=== PATIENT | female | born 1975 | race Hispanic/Latino ===

== ENCOUNTER 2018-10-15 19:50 | Emergency (ER) | payer SELFPAY ==
[2018-10-15] MEDS ORDERED: AMOX/K CLAV 875 MG TAB ONE (20:50)
--- NOTE | 2018-10-15 21:00 | ER ---
Nurse's Notes [facility] Name: Loyda Moyer Age: 43 yrs Sex: Female : 1975 Arrival Date: 10/15/2018 Time: 20:20 Bed 10 Private MD: Diagnosis: Acute tonsillitis Presentation: 10/15 20:21 Presenting complaint: Patient states: Headache, fever and sore throat that started ea yesterday. Pt reports she took amoxicillin and tylenol last taken a few hours ago. Transition of care: patient was not received from another setting of care. Onset of symptoms was October 15, 2018. Risk Assessment: Do you want to hurt yourself or someone else? Patient reports no desire to harm self or others. Initial Sepsis Screen: Does the patient meet any 2 criteria? HR > 90 bpm. Does the patient have a suspected source of infection? No. Patient's initial sepsis screen is negative. Care prior to arrival: Medication(s) given: Tylenol. 20:21 Method Of Arrival: Ambulatory ea 20:21 Acuity: JOCELYN 4 ea Triage Assessment: 20:26 General: Appears uncomfortable, Behavior is appropriate for age. Pain: Complains of ea pain in sore throat. EENT: Reports sore throat. 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 - Social history:: Smoking status: Patient/guardian denies using tobacco. - Ebola Screening: : No symptoms or risks identified at this time. Screenin:23 Abuse screen: Denies threats or abuse. Nutritional screening: No deficits noted. ea Tuberculosis screening: No symptoms or risk factors identified. Fall Risk None identified. Assessment: 20:30 General: Appears in no apparent distress. comfortable, Behavior is calm, cooperative, cc3 appropriate for age. Pain: Complains of pain in throat. Neuro: Level of Consciousness is awake, alert, obeys commands, Oriented to person, place, time, situation, Appropriate for age. Cardiovascular: Denies chest pain, Patient's skin is warm and dry. Respiratory: Airway is patent Respiratory effort is even, unlabored, Respiratory pattern is regular, symmetrical, Breath sounds are clear bilaterally. GI: Abdomen is round non-distended. : No signs and/or symptoms were reported regarding the genitourinary system. EENT: Throat with gag reflex present. Derm: No signs and/or symptoms reported regarding the dermatologic system. Musculoskeletal: Circulation, motion, and sensation intact. Range of motion: intact in all extremities. 21:10 Reassessment: Patient appears in no apparent distress at this time. Patient and/or cc3 family updated on plan of care and expected duration. Pain level reassessed. Patient is alert, oriented x 3, equal unlabored respirations, skin warm/dry/pink. MANAGER GAME Juan discharged the patient home with prescription given. No IV cannula in situ. Patient left ER vitally stable and ambulatory with her family. Patient denies pain at this time. Patient states feeling better. Patient states symptoms have improved. Vital Signs: 20:23 BP 154 / 94; Pulse 116; Resp 18; Temp 99.1; Pulse Ox 100% ; Weight 72.57 kg; Height 5 ea ft. 2 in. (157.48 cm); Pain 10/10; 21:00 BP 136 / 75; Pulse 97; Resp 18 S; Temp 98.8(O); Pulse Ox 98% on R/A; cc3 20:23 Body Mass Index 29.26 (72.57 kg, 157.48 cm) ea ED Course: 20:20 Patient arrived in ED. ea 20:23 Triage completed. ea 20:23 Lyric Martinez FNP-C is [facility]. kb 20:23 Yonas Cary MD is Attending Physician. kb 20:30 Kay Whiteside is Primary Nurse. cc3 20:30 Patient has correct armband on for positive identification. Bed in low position. Call cc3 light in reach. Pulse ox on. NIBP on. 20:30 Arm band placed on right wrist. Patient notified of wait time. cc3 21:10 No provider procedures requiring assistance completed. Patient did not have IV access cc3 during this emergency room visit. Administered Medications: 20:32 Drug: Augmentin 875 mg Route: PO; cc3 21:00 Follow up: Response: No adverse reaction cc3 Outcome: 21:00 Discharge ordered by . kb 21:10 Discharged to home ambulatory, with family. cc3 21:10 Condition: stable 21:10 Discharge instructions given to patient, family, Instructed on discharge instructions, follow up and referral plans. medication usage, Demonstrated understanding of instructions, follow-up care, medications, Prescriptions given X 1. 21:13 Patient left the ED. cc3 Signatures: Lyric Martinez, KARENAC Madisyn Botello RN RN Kay Landry cc3
--- NOTE | 2018-10-15 21:01 | EDPHYS ---
Physician Documentation [facility] Name: Loyda Moyer Age: 43 yrs Sex: Female : 1975 Arrival Date: 10/15/2018 Time: 20:20 Bed 10 Private MD: ED Physician Yonas Cary HPI: 10/15 20:59 This 43 yrs old Female presents to ER via Ambulatory with complaints of Fever, kb Sore Throat. 20:59 The patient presents with sore throat. The patient describes throat pain as constant. kb Onset: The symptoms/episode began/occurred yesterday. Severity of symptoms: At their worst the symptoms were moderate, in the emergency department the symptoms are unchanged. Modifying factors: The symptoms are alleviated by nothing, the symptoms are aggravated by swallowing, Patient's oral intake status: good The patient has had contact with sick. Associated signs and symptoms: Pertinent positives: fever, Sore throat. The patient has not experienced similar symptoms in the past. The patient has not recently seen a physician. 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 - Social history:: Smoking status: Patient/guardian denies using tobacco. - Ebola Screening: : No symptoms or risks identified at this time. ROS: 20:57 Cardiovascular: Negative for chest pain, palpitations, and edema, Respiratory: Negative kb for shortness of breath, cough, wheezing, and pleuritic chest pain, Abdomen/GI: Negative for abdominal pain, nausea, vomiting, diarrhea, and constipation, Back: Negative for injury and pain, MS/Extremity: Negative for injury and deformity, Skin: Negative for injury, rash, and discoloration, Neuro: Negative for headache, weakness, numbness, tingling, and seizure. 20:57 Constitutional: Positive for fatigue, fever, malaise, Negative for body aches, chills, poor PO intake, weight loss. 20:57 ENT: Positive for sore throat. Exam: 20:57 Constitutional: This is a well developed, well nourished patient who is awake, alert, kb and in no acute distress. Head/Face: Normocephalic, atraumatic. Chest/axilla: Normal chest wall appearance and motion. Nontender with no deformity. No lesions are appreciated. Cardiovascular: Regular rate and rhythm with a normal S1 and S2. No gallops, murmurs, or rubs. Normal PMI, no JVD. No pulse deficits. Respiratory: Lungs have equal breath sounds bilaterally, clear to auscultation and percussion. No rales, rhonchi or wheezes noted. No increased work of breathing, no retractions or nasal flaring. Abdomen/GI: Soft, non-tender, with normal bowel sounds. No distension or tympany. No guarding or rebound. No evidence of tenderness throughout. Skin: Warm, dry with normal turgor. Normal color with no rashes, no lesions, and no evidence of cellulitis. MS/ Extremity: Pulses equal, no cyanosis. Neurovascular intact. Full, normal range of motion. Neuro: Awake and alert, GCS 15, oriented to person, place, time, and situation. Cranial nerves II-XII grossly intact. Motor strength 5/5 in all extremities. Sensory grossly intact. Cerebellar exam normal. Normal gait. 20:57 ENT: Posterior pharynx: Airway: normal, no evidence of obstruction, Tonsils: bilaterally enlarged, with erythema, with exudate, Uvula: normal, midline, swelling, that is moderate, erythema, that is marked, exudate, that is moderate. Vital Signs: 20:23 BP 154 / 94; Pulse 116; Resp 18; Temp 99.1; Pulse Ox 100% ; Weight 72.57 kg; Height 5 ea ft. 2 in. (157.48 cm); Pain 10/10; 21:00 BP 136 / 75; Pulse 97; Resp 18 S; Temp 98.8(O); Pulse Ox 98% on R/A; cc3 20:23 Body Mass Index 29.26 (72.57 kg, 157.48 cm) ea MDM: 20:27 Patient medically screened. kb 20:59 Data reviewed: vital signs, nurses notes. Data interpreted: Pulse oximetry: on room air kb is 100 %. Interpretation: normal. Counseling: I had a detailed discussion with the patient and/or guardian regarding: the historical points, exam findings, and any diagnostic results supporting the discharge/admit diagnosis, lab results, the need for outpatient follow up, a family practitioner, to return to the emergency department if symptoms worsen or persist or if there are any questions or concerns that arise at home. 20:59 ED course: Prescribing antibiotics due to physical exam findings. charley 10/15 20:25 Order name: Strep ea 10/15 20:53 Order name: Group A Streptococcus Rapid Sc; Complete Time: 20:54 EDMS Administered Medications: 20:32 Drug: Augmentin 875 mg Route: PO; cc3 21:00 Follow up: Response: No adverse reaction cc3 Disposition: 21:13 Co-signature as Attending Physician, Yonas Cary MD. [email or web address] Disposition: 10/15/18 21:00 Discharged to Home. Impression: Acute tonsillitis. - Condition is Stable. - Discharge Instructions: Tonsillitis, Moan-ah-Yhni, Strep Throat, Wjjn-re-Dzuc. - Prescriptions for Augmentin 875- 125 mg Oral Tablet - take 1 tablet by ORAL route every 12 hours for 10 days; 20 tablet. - Medication Reconciliation Form, Thank You Letter, Antibiotic Education, Prescription Opioid Use form. - Follow up: Emergency Department; When: As needed; Reason: Worsening of condition. Follow up: Private Physician; When: 2 - 3 days; Reason: Recheck today's complaints, Continuance of care, Re-evaluation by your physician. Signatures: Dispatcher [employer] EDLyric Baez, CHILD CARE CENTER ASSISTANT DIRECTOR-Jodee NIETOP-Yonas Rodriguez MD MD pkMadisyn Rutherford, Kay Cid RN, ea cc3 Corrections: (The following items were deleted from the chart) 21:13 21:00 10/15/2018 21:00 Discharged to Home. Impression: Acute tonsillitis. Condition is cc3 Stable. Forms are Medication Reconciliation Form, Thank You Letter, Antibiotic Education, Prescription Opioid Use. Follow up: Emergency Department; When: As needed; Reason: Worsening of condition. Follow up: Private Physician; When: 2 - 3 days; Reason: Recheck today's complaints, Continuance of care, Re-evaluation by your physician. kb
== END 2018-10-15 21:13 | disposition home or self-care (01) ==
LOC: ER 19:50
DX: J03.90 Acute tonsillitis, unspecified (principal)
CPT/HCPCS: 87070; 87081; 99283

== ENCOUNTER 2019-06-29 23:03 | Emergency (ER) | payer OTHER ==
[2019-06-29] MEDS ORDERED: SUCRALFATE 1 GM TABLET ONE (23:27)
[2019-06-29] MEDS ORDERED: SIMETHICONE 80 MG TAB ONE (23:28)
[2019-06-29] MEDS ORDERED: NA CHLORIDE 0.9% 1,000 ML ONE (23:33)
[2019-06-29] MEDS ORDERED: DICYCLOMINE HCL 10 MG CAP ONE (23:33)
[2019-06-30 00:11] LABS: Absolute Lymphocytes (CBC) 3.8 K/uL (0.7-4.9); Basophils % 0.4 % (0-1.3); Hematocrit 31.5 % (36.0-45.0); Lymphocytes % 36.4 % (15.3-44.8); MPV 10.5 fL (7.6-11.3); RBC Red Blood Cell Count 3.84 M/uL (3.86-4.86)
[2019-06-30 00:14] LABS: ALT/SGPT 29 U/L (12-78); AST/SGOT 14 U/L (15-37); Albumin 3.2 g/dL (3.4-5.0); Alkaline Phosphatase 49 U/L (45-117); BUN Blood Urea Nitrogen 14 mg/dL (7-18); Bicarbonate 26 mmol/L (21-32); Bilirubin Direct < 0.1 mg/dL (0-0.2); Bilirubin Total 0.2 mg/dL (0.2-1.0); Glucose Level 132 mg/dL (74-106); Lipase 288 U/L (73-393); Potassium 3.4 mmol/L (3.5-5.1); Protein, Total 6.6 g/dL (6.4-8.2); Sodium Level 140 mmol/L (136-145)
[2019-06-30] MEDS ORDERED: FENTANYL CITR 100 MCG/2 ML ONE (00:18)
--- NOTE | 2019-06-30 00:49 | ER ---
Nurse's Notes [facility] Name: Loyda Moyer Age: 44 yrs Sex: Female : 1975 Arrival Date: 06/29/2019 Time: 23:05 Bed 17 Private MD: Ronald Shultz R Diagnosis: Colic;Iron deficiency anemia, unspecified;Essential (primary) hypertension Presentation: 06/29 23:11 Presenting complaint: Burning epigastric pain 9/10 since this morning. Denies hb N/V/D/fever. Transition of care: patient was not received from another setting of care. Onset of symptoms was June 29, 2019. Risk Assessment: Do you want to hurt yourself or someone else? Patient reports no desire to harm self or others. Initial Sepsis Screen: Does the patient meet any 2 criteria? No. Patient's initial sepsis screen is negative. Does the patient have a suspected source of infection? No. Patient's initial sepsis screen is negative. Care prior to arrival: None. 23:11 Method Of Arrival: Ambulatory hb 23:11 Acuity: JOCELYN 3 hb Triage Assessment: 23:14 General: Appears in no apparent distress. uncomfortable, Behavior is calm, cooperative. hb Pain: Pain currently is 9 out of 10 on a pain scale. EENT: No signs and/or symptoms were reported regarding the EENT system. Neuro: Level of Consciousness is awake, alert, obeys commands, Oriented to person, place, time, situation. Cardiovascular: Capillary refill < 3 seconds Patient's skin is warm and dry. Respiratory: Airway is patent Respiratory effort is even, unlabored, Respiratory pattern is regular, symmetrical. GI: Abdomen is non-distended, Bowel sounds present X 4 quads. Abd is soft and non tender X 4 quads. Reports epigastric pain. : No signs and/or symptoms were reported regarding the genitourinary system. Derm: Skin is intact, is healthy with good turgor. Musculoskeletal: No signs and/or symptoms reported regarding the musculoskeletal system. 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 - Coronavirus screen:: The patient has NOT traveled to [place] in the past 14 days. The patient has NOT had contact with known/suspected case of Coronavirus? Proceed with normal triage procedures. - Social history:: Smoking status: Patient denies any tobacco usage or history of. - Ebola Screening: : No symptoms or risks identified at this time. Screenin:13 Abuse screen: Denies threats or abuse. Denies injuries from another. Nutritional hb screening: No deficits noted. Tuberculosis screening: No symptoms or risk factors identified. Fall Risk None identified. Assessment: 23:16 General: SEE TRIAGE ASSESSMENT. hb 06/30 00:36 Reassessment: Patient appears in no apparent distress at this time. Patient and/or hb family updated on plan of care and expected duration. Pain level reassessed. Patient is alert, oriented x 3, equal unlabored respirations, skin warm/dry/pink. Vital Signs: 06/29 23:11 BP 178 / 85; Pulse 86; Resp 16; Temp 98.5; Pulse Ox 97% ; Weight 76.2 kg; Height 5 ft. hb 2 in. (157.48 cm); Pain 9/10; 06/30 00:31 BP 155 / 90; Pulse 82; Resp 15; Pulse Ox 100% ; Pain 6/10; hb 06/29 23:11 Body Mass Index 30.73 (76.20 kg, 157.48 cm) hb ED Course: 06/29 23:05 Patient arrived in ED. es 23:06 Ronald Shultz MD is Private Physician. es 23:11 Perri Patel, MARLENY is Primary Nurse. hb 23:11 Arm band placed on. hb 23:12 Triage completed. hb 23:12 Sloane Lechuga FNP-C is PHCP. snw 23:12 Jacek Kate MD is Attending Physician. snw 23:13 Patient has correct armband on for positive identification. Bed in low position. Call hb light in reach. Side rails up X 1. 23:33 Inserted saline lock: 20 gauge in right antecubital area, using aseptic technique. hb Blood collected. 23:37 Urine Culture Sent. hb 06/30 00:18 Urine --Ancillary (enter results) Sent. hb 00:18 Urine Dipstick--Ancillary (enter results) Sent. hb 00:21 EKG done, by ED staff, reviewed by Jacek Kate MD. ds4 00:28 Urine Microscopic Only Sent. hb 00:47 Ronald Shultz MD is Referral Physician. snw 00:56 No provider procedures requiring assistance completed. IV discontinued, intact, hb bleeding controlled, No redness/swelling at site. Pressure dressing applied. Administered Medications: 06/29 23:27 Drug: Simethicone 240 mg Route: PO; rr5 06/30 00:17 Follow up: Response: No adverse reaction hb 06/29 23:27 Drug: CarafATE 1 grams Route: PO; rr5 06/30 00:18 Follow up: Response: No adverse reaction hb 06/29 23:37 Drug: Bentyl 20 mg Route: PO; hb 06/30 00:18 Follow up: Response: No adverse reaction hb 06/29 23:37 Drug: NS 0.9% 1000 ml Route: IV; Rate: 1 bolus; Site: right antecubital; hb 02 00:30 Follow up: Response: No adverse reaction; IV Status: Completed infusion; IV Intake: hb 1000ml 00:17 Drug: fentaNYL (PF) 25 mcg Route: IVP; Site: right antecubital; hb 00:47 Follow up: Response: No adverse reaction; Pain is decreased; RASS: Drowsy (-1) hb Intake: 00:30 IV: 1000ml; Total: 1000ml. hb Outcome: 00:47 Discharge ordered by . snw 00:56 Discharged to home ambulatory. hb 00:56 Condition: stable 00:56 Discharge instructions given to patient, Instructed on discharge instructions, follow up and referral plans. medication usage, Demonstrated understanding of instructions, follow-up care, medications, Prescriptions given X 3. 01:03 Patient left the ED. hb Signatures: Sloane Lechuga, AIRCRAFT STRUCTURAL FITTER-C AIRCRAFT STRUCTURAL FITTER-CsnDee Gabriel Donovan ds4 Perri Patel, RN RN Taran Banks, RN RN [id number]
--- NOTE | 2019-06-30 00:50 | EDPHYS ---
Physician Documentation [facility] Name: Loyda Moyer Age: 44 yrs Sex: Female : 1975 Arrival Date: 06/29/2019 Time: 23:05 Bed 17 Private MD: Ronald Shultz R ED Physician Jacek Kate HPI: 06/30 00:42 This 44 yrs old Female presents to ER via Ambulatory with complaints of snw Abdominal Pain. 00:42 The patient presents with abdominal pain in the epigastric area. Onset: The snw symptoms/episode began/occurred suddenly, today. The symptoms radiate to The symptoms are described as constant. Modifying factors: The symptoms are alleviated by nothing. Severity of pain: At its worst the pain was moderate severe. The patient has experienced a previous episode, when cholecystitis dx, + cholecystectomy. The patient has not recently seen a physician. 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 - Coronavirus screen:: The patient has NOT traveled to [place] in the past 14 days. The patient has NOT had contact with known/suspected case of Coronavirus? Proceed with normal triage procedures. - Social history:: Smoking status: Patient denies any tobacco usage or history of. - Ebola Screening: : No symptoms or risks identified at this time. ROS: 06/30 00:39 Constitutional: Negative for fever, chills, and weight loss, Eyes: Negative for injury, snw pain, redness, and discharge, ENT: Negative for injury, pain, and discharge, Neck: Negative for injury, pain, and swelling, Cardiovascular: Negative for chest pain, palpitations, and edema, Respiratory: Negative for shortness of breath, cough, wheezing, and pleuritic chest pain, Back: Negative for injury and pain, : Negative for injury, bleeding, discharge, and swelling, MS/Extremity: Negative for injury and deformity, Skin: Negative for injury, rash, and discoloration, Neuro: Negative for headache, weakness, numbness, tingling, and seizure, Psych: Negative for depression, anxiety, suicide ideation, homicidal ideation, and hallucinations. Abdomen/GI: Positive for abdominal pain, of the epigastric area. Exam: 00:20 ECG was reviewed by the Attending Physician. snw 00:39 Constitutional: This is a well developed, well nourished patient who is awake, alert, snw and in no acute distress. Head/Face: Normocephalic, atraumatic. Eyes: Pupils equal round and reactive to light, extra-ocular motions intact. Lids and lashes normal. Conjunctiva and sclera are non-icteric and not injected. Cornea within normal limits. Periorbital areas with no swelling, redness, or edema. ENT: Nares patent. No nasal discharge, no septal abnormalities noted. Tympanic membranes are normal and external auditory canals are clear. Oropharynx with no redness, swelling, or masses, exudates, or evidence of obstruction, uvula midline. Mucous membranes moist. Neck: Trachea midline, no thyromegaly or masses palpated, and no cervical lymphadenopathy. Supple, full range of motion without nuchal rigidity, or vertebral point tenderness. No Meningismus. Chest/axilla: Normal chest wall appearance and motion. Nontender with no deformity. No lesions are appreciated. Cardiovascular: Regular rate and rhythm with a normal S1 and S2. No gallops, murmurs, or rubs. Normal PMI, no JVD. No pulse deficits. Respiratory: Lungs have equal breath sounds bilaterally, clear to auscultation and percussion. No rales, rhonchi or wheezes noted. No increased work of breathing, no retractions or nasal flaring. Back: No spinal tenderness. No costovertebral tenderness. Full range of motion. Skin: Warm, dry with normal turgor. Normal color with no rashes, no lesions, and no evidence of cellulitis. MS/ Extremity: Pulses equal, no cyanosis. Neurovascular intact. Full, normal range of motion. Neuro: Awake and alert, GCS 15, oriented to person, place, time, and situation. Cranial nerves II-XII grossly intact. Motor strength 5/5 in all extremities. Sensory grossly intact. Cerebellar exam normal. Normal gait. Psych: Awake, alert, with orientation to person, place and time. Behavior, mood, and affect are within normal limits. 00:39 Abdomen/GI: Inspection: abdomen appears normal, Bowel sounds: normal, in all quadrants, Palpation: mild abdominal tenderness, in the epigastric area. Vital Signs: 06/29 23:11 BP 178 / 85; Pulse 86; Resp 16; Temp 98.5; Pulse Ox 97% ; Weight 76.2 kg; Height 5 ft. hb 2 in. (157.48 cm); Pain 9/10; 06/30 00:31 BP 155 / 90; Pulse 82; Resp 15; Pulse Ox 100% ; Pain 6/10; hb 06/29 23:11 Body Mass Index 30.73 (76.20 kg, 157.48 cm) hb MDM: 06/29 23:15 Patient medically screened. snw 06/30 00:48 Data reviewed: vital signs, nurses notes. Data interpreted: Pulse oximetry: on room air snw is 100 %. Interpretation: normal. Counseling: I had a detailed discussion with the patient and/or guardian regarding: the historical points, exam findings, and any diagnostic results supporting the discharge/admit diagnosis, the presence of at least one elevated blood pressure reading (>120/80) during this emergency department visit, lab results, the need for outpatient follow up, to return to the emergency department if symptoms worsen or persist or if there are any questions or concerns that arise at home. Response to treatment: the patient's symptoms have markedly improved after treatment. Special discussion: Based on the patient's Hx, exam, and Dx evaluation, there is no indication for emergent surgery or inpatient Tx. It is understood by the patient/guardian that if the Sx's persist or worsen they need to return immediately for re-evaluation. I have referred the patient to see his PCP for further evaluation of high blood pressure. Based on the history and exam findings, there is no indication for further emergent testing or inpatient evaluation. I discussed with the patient/guardian the need to see the primary care provider for further evaluation of the symptoms. 06/29 23:13 Order name: Urine Culture snw 06/29 23:13 Order name: Urine Microscopic Only snw 06/29 23:24 Order name: CBC with Diff snw 06/29 23:24 Order name: Chem 7 snw 06/29 23:24 Order name: LFT's snw 06/29 23:24 Order name: Lipase snw 06/30 00:11 Order name: Urine Dipstick--Ancillary (enter results) cm6 06/30 00:11 Order name: Urine --Ancillary (enter results) cm6 06/30 00:12 Order name: CBC with Automated Diff; Complete Time: 00:13 EDMS 06/30 00:15 Order name: Basic Metabolic Panel; Complete Time: 00:15 EDMS 06/30 00:15 Order name: Liver (Hepatic) Function; Complete Time: 00:15 EDMS 06/30 00:15 Order name: Lipase; Complete Time: 00:15 EDMS 06/29 23:13 Order name: Urine Test (obtain specimen); Complete Time: 00:18 snw 06/29 23:13 Order name: Urine Dipstick-Ancillary (obtain specimen); Complete Time: 00:28 snw 06/29 23:21 Order name: EKG; Complete Time: 23:21 snw 06/29 23:21 Order name: EKG - Nurse/Tech; Complete Time: 00:18 snw EC:20 Rate is 77 beats/min. Rhythm is regular. WI interval is normal. QRS interval is normal. snw QT interval is normal. T waves are Inverted in leads III, aVR. Clinical impression: NSR w/ Non-specific ST/T Changes. Administered Medications: 06/29 23:27 Drug: Simethicone 240 mg Route: PO; rr5 06/30 00:17 Follow up: Response: No adverse reaction hb 06/29 23:27 Drug: CarafATE 1 grams Route: PO; rr5 06/30 00:18 Follow up: Response: No adverse reaction hb 06/29 23:37 Drug: Bentyl 20 mg Route: PO; hb 06/30 00:18 Follow up: Response: No adverse reaction hb 06/29 23:37 Drug: NS 0.9% 1000 ml Route: IV; Rate: 1 bolus; Site: right antecubital; hb 06/30 00:30 Follow up: Response: No adverse reaction; IV Status: Completed infusion; IV Intake: hb 1000ml 00:17 Drug: fentaNYL (PF) 25 mcg Route: IVP; Site: right antecubital; hb 00:47 Follow up: Response: No adverse reaction; Pain is decreased; RASS: Drowsy (-1) hb Disposition: 01:08 Co-signature as Attending Physician, Jacek Kate MD I agree with the assessment and kdr plan of care. Disposition: 06/30/19 00:47 Discharged to Home. Impression: Colic, Iron deficiency anemia, unspecified, Essential (primary) hypertension. - Condition is Stable. - Discharge Instructions: Iron Deficiency Anemia, Adult, Biliary Colic, Adult, Fat and Cholesterol Restricted Diet, Hypertension, How to Take Your Blood Pressure, [id number], DASH Eating Plan, Form - Blood Pressure Record Sheet. - Prescriptions for Bentyl 20 mg Oral Tablet - take 1 tablet by ORAL route every 6 hours As needed; 20 tablet. promethazine 25 mg Oral Tablet - take 1 tablet by ORAL route every 6 hours As needed; 20 tablet. Vitamin 27- 0.8 mg Oral Tablet - take 1 tablet by ORAL route once daily; 60 tablet. - Work release form, Medication Reconciliation Form, Thank You Letter, Antibiotic Education, Prescription Opioid Use form. - Follow up: Emergency Department; When: As needed; Reason: Worsening of condition. Follow up: Ronald Shultz MD; When: 2 - 3 days; Reason: Recheck today's complaints, Continuance of care, Re-evaluation by your physician. Signatures: Dispatcher [employer] EDMS Jacek Kate MD MD kdr Therrien, Shelly, RETAIL EVENT COORDINATOR-C RETAIL EVENT COORDINATOR-Csnw Perri Patel, MARLENY RN Taran Banks RN RN rr5 Corrections: (The following items were deleted from the chart) 00:47 00:47 06/30/2019 00:47 Discharged to Home. Impression: Colic. Condition is Stable. snw Forms are Medication Reconciliation Form, Thank You Letter, Antibiotic Education, Prescription Opioid Use. Follow up: Emergency Department; When: As needed; Reason: Worsening of condition. Follow up: Ronald Shultz; When: 2 - 3 days; Reason: Recheck today's complaints, Continuance of care, Re-evaluation by your physician. snw 00:49 00:47 06/30/2019 00:47 Discharged to Home. Impression: Colic; Iron deficiency anemia, snw unspecified. Condition is Stable. Forms are Medication Reconciliation Form, Thank You Letter, Antibiotic Education, Prescription Opioid Use. Follow up: Emergency Department; When: As needed; Reason: Worsening of condition. Follow up: Ronald Shultz; When: 2 - 3 days; Reason: Recheck today's complaints, Continuance of care, Re-evaluation by your physician. laci 01:03 00:49 06/30/2019 00:47 Discharged to Home. Impression: Colic; Iron deficiency anemia, hb unspecified; Essential (primary) hypertension. Condition is Stable. Forms are Medication Reconciliation Form, Thank You Letter, Antibiotic Education, Prescription Opioid Use. Follow up: Emergency Department; When: As needed; Reason: Worsening of condition. Follow up: Ronald Shultz; When: 2 - 3 days; Reason: Recheck today's complaints, Continuance of care, Re-evaluation by your physician. laci
[2019-06-30 01:07] LABS: Urine Blood TRACE (NEG); Urine Glucose NEGATIVE (NEG); Urine Protein NEGATIVE (NEG); Urine Specific Gravity 1.015 (1.005-1.030)
[2019-06-30 01:48] LABS: Urine Bacteria <20 /HPF (<20); Urine Culture Reflex Order NOT NEEDED; Urine RBC <5 /HPF (NONE SEEN)
[2019-06-30 03:38] VITALS: BP 155/90; O2SAT 100
[2019-06-30 03:40] VITALS: TEMP 98.5
--- NOTE | 2019-06-30 06:20 | EKG ---
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
== END 2019-06-30 01:03 | disposition home or self-care (01) ==
LOC: ER 23:03
DX: R10.84 Generalized abdominal pain (principal); D50.9 Iron deficiency anemia, unspecified; I10 Essential (primary) hypertension
CPT/HCPCS: 96361; 93005; 87088; 85025; 87086; 80048; 36415; 81025; 80076; 87077; 87186; 83690; 96374; 99284; J3010; J7030; 81003; 81015

== ENCOUNTER 2020-01-27 23:48 | Inpatient (IN) | payer OTHER, SELFPAY ==
[2020-01-28] MEDS ORDERED: MORPHINE 4 MG/ML SYR ONE (00:18)
[2020-01-28] MEDS ORDERED: NA CHLORIDE 0.9% 1,000 ML ONE ×2 (00:18→02:05)
[2020-01-28] MEDS ORDERED: ONDANSETRON 4 MG/2 ML VIAL ONE (00:18)
[2020-01-28] MEDS ORDERED: FAMOTIDINE 20 MG/2 ML VIAL IV ONE (00:27)
[2020-01-28 00:50] LABS: Absolute Lymphocytes (CBC) 0.6 K/uL (0.7-4.9); Basophils % 0.1 % (0-1.3); Hematocrit 32.8 % (36.0-45.0); MPV 10.5 fL (7.6-11.3); RBC Red Blood Cell Count 4.19 M/uL (3.86-4.86)
[2020-01-28 00:59] LABS: Bilirubin Direct 0.1 mg/dL (0-0.2); Bilirubin Total 0.3 mg/dL (0.2-1.0); Protein, Total 7.3 g/dL (6.4-8.2)
[2020-01-28 01:23] LABS: Magnesium 2.1 mg/dL (1.8-2.4)
[2020-01-28] MEDS ORDERED: POTASSIUM 25 MEQ EFFERV TAB ONE (01:32)
[2020-01-28] MEDS ORDERED: PROMETHAZINE INJ 25 MG/ML AMP ONE (01:38)
[2020-01-28 01:51] LABS: Blood Morphology Comment NOT SEEN (NOT SEEN); Platelet Estimate ADEQ
[2020-01-28 01:52] LABS: Urine Blood 2+ (NEG); Urine Glucose NEGATIVE (NEG); Urine Protein 3+ (NEG); Urine pH 5.5 (5.0-7.0)
[2020-01-28] MEDS ORDERED: METRONIDAZOLE 500mg IVPB 500 MG/100 ML BAG IV ONE (02:33)
[2020-01-28] MEDS ORDERED: CIPROFLOXACIN 400mg IV 400 MG/200 ML BAG IV ONE (02:33)
--- NOTE | 2020-01-28 03:37 | ER ---
Nurse's Notes [facility] Name: Loyda Moyer Age: 44 yrs Sex: Female : 1975 Arrival Date: 01/27/2020 Time: 23:52 Bed 20 Private MD: Ronald Shultz R Diagnosis: Colitis;Bandemia;Hypokalemia;Dehydration Presentation: 01/27 00:00 Chief complaint: Patient states: STARTED FEELING BAD MONDAY. AFTER EATING BURGER, rv STARTED HAVING NAUSEA/VOMITING/DIARRHEA. NOT ABLE TO HOLD ANYTHING DOWN AND IS VERY WEAK AND DEHYDRATED. DENIES COUGH AND/OR SOB. SENSE OF SMELL AND TASTE, INTACT. Coronavirus screen: Client denies travel out of the [place] in the last 14 days. At this time, the client does not indicate any symptoms associated with coronavirus-19. Ebola Screen: No symptoms or risks identified at this time. Initial Sepsis Screen: Does the patient meet any 2 criteria? No. Patient's initial sepsis screen is negative. Does the patient have a suspected source of infection? No. Patient's initial sepsis screen is negative. Risk Assessment: Do you want to hurt yourself or someone else? Patient reports no desire to harm self or others. Onset of symptoms was January 25, 2020. 00:00 Method Of Arrival: Ambulatory rv 00:00 Acuity: JOCELYN 3 rv Triage Assessment: 00:03 General: Appears uncomfortable, Behavior is calm, cooperative. Pain: Complains of pain rv in abdomen Pain does not radiate. Pain currently is 10 out of 10 on a pain scale. Quality of pain is described as crampy. EENT: No signs and/or symptoms were reported regarding the EENT system. Neuro: Level of Consciousness is awake, alert, obeys commands, Oriented to person, place, time, situation. Cardiovascular: Patient's skin is warm and dry. Rhythm is sinus tachycardia. Respiratory: Airway is patent Respiratory effort is even, unlabored, Breath sounds are clear bilaterally. GI: Abdomen is round Bowel sounds hyperactive in right upper quadrant, left upper quadrant, right lower quadrant and left lower quadrant. Derm: Skin is intact. 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 - Social history:: Smoking status: Patient denies any tobacco usage or history of. Screenin:04 Abuse screen: Denies threats or abuse. Denies injuries from another. Nutritional rv screening: No deficits noted. Tuberculosis screening: No symptoms or risk factors identified. Fall Risk None identified. Assessment: 01:52 Reassessment: nausea and pain is decreased. Neuro: Level of Consciousness is awake, rv alert, obeys commands, Oriented to person, place, time, situation. Cardiovascular: Patient's skin is warm and dry. Respiratory: Airway is patent. GI: Abdomen is round non-distended. 03:13 Reassessment: Patient is alert, oriented x 3, equal unlabored respirations, skin rv warm/dry/pink. Patient states symptoms have improved. Reassessment: awaiting CT scan result. Neuro: Level of Consciousness is awake, alert, obeys commands, Oriented to person, place, time, situation. GI: Abdomen is round non-distended, Reports nausea and abdominal pain decreased. 03:39 Reassessment: DR THOMAS TALKED TO THE PATIENT AND EXPLAINED THE RESULT OF THE CT SCAN. rv ADVISED FOR ADMISSION. PATIENT AGREED. Vital Signs: 00:00 BP 150 / 85; Pulse 112; Resp 19; Temp 98.6; Pulse Ox 99% ; Weight 78.47 kg; Height 5 rv ft. 1 in. (154.94 cm); Pain 10/10; 01:00 BP 137 / 77; Pulse 103; Resp 18; Pulse Ox 100% on R/A; rv 01:55 BP 125 / 74; Pulse 104; Resp 18; Pulse Ox 100% ; rv 02:38 BP 129 / 63; Pulse 99; Resp 16; Pulse Ox 100% on R/A; rv 03:15 BP 133 / 66; Pulse 95; Resp 16; Pulse Ox 99% on R/A; rv 03:40 BP 127 / 64; Pulse 93; Resp 17; Temp 99.3; Pulse Ox 100% on R/A; rv 00:00 Body Mass Index 32.69 (78.47 kg, 154.94 cm) rv ED Course: 01/26 23:52 Patient arrived in ED. bp1 23:52 Ronald Shultz MD is Private Physician. bp1 23:53 Eloy, Rusty, MARLENY is Primary Nurse. rv 23:57 Art Thomas MD is Attending Physician. mh7 01/27 00:03 Triage completed. rv 00:04 Arm band placed on right wrist. Patient placed in the treatment room, on a stretcher, rv Patient notified of wait time. 00:05 Patient has correct armband on for positive identification. Placed in gown. Bed in low rv position. Call light in reach. Pulse ox on. NIBP on. 00:15 Inserted saline lock: 20 gauge in right antecubital area, using aseptic technique. rv Blood collected. 00:15 Initial lab(s) drawn, by me, sent to lab. rv 00:21 EKG done, by ED staff, reviewed by Art Thomas MD. ds4 01:06 Radiology exam delayed due to test not completed at this time. kw1 01:[address]. rv 01:52 CT Abd/Pelvis - IV Contrast Only In Process Unspecified. EDMS 01:56 Awaiting radiology results. rv 02:05 First set of blood cultures drawn by ED staff. rv 02:20 Second set of blood cultures drawn by ED staff. rv 03:36 Tino Desir DO is Hospitalizing Provider. mh7 03:43 No provider procedures requiring assistance completed. IV is patent, with fluids rv infusing freely, with good blood return, Patient admitted, IV remains in place. Administered Medications: 00:16 Drug: Pepcid 20 mg Route: IVP; Site: right antecubital; rv 01:50 Follow up: Response: No adverse reaction rv 00:17 Drug: NS 0.9% 1000 ml Route: IV; Rate: 1000 ml; Site: right antecubital; rv 01:51 Follow up: IV Status: Completed infusion; IV Intake: 1000ml rv 00:17 Drug: morphine 4 mg {Note: RASS 0.} Route: IVP; Site: right antecubital; rv 01:50 Follow up: Response: No adverse reaction rv 00:17 Drug: Zofran (Ondansetron) 4 mg Route: IVP; Site: right antecubital; rv 01:50 Follow up: Response: No adverse reaction rv 01:15 Drug: Potassium Effervescent Tablet 50 mEq Route: PO; rv 01:49 Follow up: Response: No adverse reaction rv 01:15 Drug: Phenergan 12.5 mg Route: IVP; Site: right antecubital; rv 01:50 Follow up: Response: No adverse reaction rv 01:58 Drug: NS 0.9% 1000 ml Route: IV; Rate: 1000 ml; Site: right antecubital; rv 03:39 Follow up: IV Status: Completed infusion; IV Intake: 1000ml rv 02:35 Drug: Cipro 400 mg Volume: 200 ml; Route: IVPB; Infused Over: 60 mins; Site: right rv antecubital; 03:39 Follow up: IV Status: Completed infusion; IV Intake: 200ml rv 02:35 Drug: Flagyl 500 mg Volume: 100 ml; Route: IVPB; Rate: 200 ml/hr; Infused Over: 30 rv mins; Site: right antecubital; 03:38 Follow up: IV Status: Completed infusion; IV Intake: 100ml rv Intake: 01:51 IV: 1000ml; Total: 1000ml. rv 03:38 IV: 100ml; Total: 1100ml. rv 03:39 IV: 200ml; Total: 1300ml. rv 03:39 IV: 1000ml; Total: 2300ml. rv Outcome: 03:37 Decision to Hospitalize by Provider. [facility] 03:43 Condition: good rv 03:43 Instructed on the need for admit. 04:18 Admitted to Med/surg accompanied by tech, via wheelchair, room 219, Other sbar, ekg, ct rv scan result Report called to PB FARMER 04:19 Patient left the ED. rv Signatures: Dispatcher [employer] EDMS Angelito Drew4 Lucero Bansal1 Rusty Lyons, RN RN rv Dayami Cunningham Maurice, MD MD 7
--- NOTE | 2020-01-28 03:37 | EDPHYS ---
Physician Documentation [facility] Name: Loyda Moyer Age: 44 yrs Sex: Female : 1975 Arrival Date: 01/27/2020 Time: 23:52 Bed 20 Private MD: Ronald Shultz R ED Physician Art Thomas HPI: 01/27 00:11 This 44 yrs old Female presents to ER via Ambulatory with complaints of mh7 Diarrhea, Nausea/Vomiting, General Weakness. 00:11 The patient presents to the emergency department with nausea, that is moderate, mh7 vomiting, diarrhea, that is intermittent. Onset: The symptoms/episode began/occurred 2 day(s) ago. Possible causes: bad food exposure, hamburger. The symptoms are aggravated by nothing. The symptoms are alleviated by nothing. Associated signs and symptoms: Pertinent positives: abdominal pain, diarrhea, nausea, vomiting, Pertinent negatives: anorexia, belching, constipation, dysuria, fever, flatulence, GI bleeding, hematuria, vaginal discharge. Severity of symptoms: At their worst the symptoms were moderate last night, in the emergency department the symptoms are unchanged. 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 - Social history:: Smoking status: Patient denies any tobacco usage or history of. ROS: 00:12 Constitutional: Negative for fever, chills, and weight loss, Eyes: Negative for injury, mh7 pain, redness, and discharge, ENT: Negative for injury, pain, and discharge, Neck: Negative for injury, pain, and swelling, Cardiovascular: Negative for chest pain, palpitations, and edema, Respiratory: Negative for shortness of breath, cough, wheezing, and pleuritic chest pain, Back: Negative for injury and pain, : Negative for injury, bleeding, discharge, and swelling, MS/Extremity: Negative for injury and deformity, Skin: Negative for injury, rash, and discoloration, Psych: Negative for depression, anxiety, suicide ideation, homicidal ideation, and hallucinations, Allergy/Immunology: Negative for hives, rash, and allergies, Endocrine: Negative for neck swelling, polydipsia, polyuria, polyphagia, and marked weight changes, Hematologic/Lymphatic: Negative for swollen nodes, abnormal bleeding, and unusual bruising. Exam: 00:12 Head/Face: Normocephalic, atraumatic. Eyes: Pupils equal round and reactive to light, mh7 extra-ocular motions intact. Lids and lashes normal. Conjunctiva and sclera are non-icteric and not injected. Cornea within normal limits. Periorbital areas with no swelling, redness, or edema. Neck: Trachea midline, no thyromegaly or masses palpated, and no cervical lymphadenopathy. Supple, full range of motion without nuchal rigidity, or vertebral point tenderness. No Meningismus. Chest/axilla: Normal chest wall appearance and motion. Nontender with no deformity. No lesions are appreciated. 00:12 Respiratory: Lungs have equal breath sounds bilaterally, clear to auscultation and percussion. No rales, rhonchi or wheezes noted. No increased work of breathing, no retractions or nasal flaring. 00:12 Back: No spinal tenderness. No costovertebral tenderness. Full range of motion. Skin: Warm, dry with normal turgor. Normal color with no rashes, no lesions, and no evidence of cellulitis. MS/ Extremity: Pulses equal, no cyanosis. Neurovascular intact. Full, normal range of motion. Neuro: Awake and alert, GCS 15, oriented to person, place, time, and situation. Cranial nerves II-XII grossly intact. Motor strength 5/5 in all extremities. Sensory grossly intact. Cerebellar exam normal. Normal gait. Psych: Awake, alert, with orientation to person, place and time. Behavior, mood, and affect are within normal limits. 00:12 Constitutional: The patient appears in no acute distress, alert, awake, uncomfortable. 00:12 Cardiovascular: Rate: tachycardic, Rhythm: regular, Pulses: Heart sounds: normal, normal S1and S2, Edema: is not appreciated, JVD: is not appreciated. 00:12 Abdomen/GI: Inspection: abdomen appears normal, obese Bowel sounds: normal, in all quadrants, Palpation: moderate abdominal tenderness, in all quadrants, Rectal exam: the exam is deferred, because of patient request, Indicators: McBurney's point is not tender, Eden's sign is negative, Rovsing's sign is negative, Obturator sign is negative, Psoas sign is negative, Liver: no appreciated palpable abnormalities, Hernia: not appreciated. 00:45 ECG was reviewed by the Attending Physician. [facility] Vital Signs: 00:00 BP 150 / 85; Pulse 112; Resp 19; Temp 98.6; Pulse Ox 99% ; Weight 78.47 kg; Height 5 rv ft. 1 in. (154.94 cm); Pain 10/10; 01:00 BP 137 / 77; Pulse 103; Resp 18; Pulse Ox 100% on R/A; rv 01:55 BP 125 / 74; Pulse 104; Resp 18; Pulse Ox 100% ; rv 02:38 BP 129 / 63; Pulse 99; Resp 16; Pulse Ox 100% on R/A; rv 03:15 BP 133 / 66; Pulse 95; Resp 16; Pulse Ox 99% on R/A; rv 03:40 BP 127 / 64; Pulse 93; Resp 17; Temp 99.3; Pulse Ox 100% on R/A; rv 00:00 Body Mass Index 32.69 (78.47 kg, 154.94 cm) rv MDM: 00:09 Patient medically screened. [facility] 03:34 Differential diagnosis: Nonspecific abd pain, gastritis, pancreatitis, diverticulitis, mh7 viral gastroenteritis, gastroenteritis, Colitis. Data reviewed: vital signs, nurses notes, old medical records, lab test result(s), CBC, electrolytes, urinalysis, EKG, radiologic studies, CT scan. Data interpreted: Pulse oximetry: on room air is 99 %. Interpretation: normal. Counseling: I had a detailed discussion with the patient and/or guardian regarding: the historical points, exam findings, and any diagnostic results supporting the discharge/admit diagnosis, lab results, radiology results, the need for further work-up and treatment in the hospital. Response to treatment: the patient's symptoms have markedly improved after treatment. 01/27 00:10 Order name: Basic Metabolic Panel; Complete Time: [facility] 01/27 00:10 Order name: CBC with Diff; Complete Time: 01/27 00:10 Order name: Hepatic Function; Complete Time: [facility] 01/27 00:10 Order name: Lipase; Complete Time: [facility] 01/27 00:52 Order name: Manual Differential; Complete Time: [facility] 01/27 01:12 Order name: Magnesium [facility] 01/27 01:15 Order name: Urine Dipstick--Ancillary (enter results); Complete Time: 01:55 [facility] 01/27 01:18 Order name: Magnesium; Complete Time: 01:33 [facility] 01/27 01:21 Order name: Urine --Ancillary (enter results); Complete Time: 01:55 [facility] 01/27 01:57 Order name: Blood Culture Adult (2) [facility] 01/27 01:57 Order name: Lactate; Complete Time: 03:00 [facility] 01/27 01:57 Order name: Procalcitonin; Complete Time: 03:15 [facility] 01/27 02:32 Order name: Ova And Parasites [facility] 01/27 00:10 Order name: IV Saline Lock; Complete Time: 00:11 [facility] 01/27 00:10 Order name: Labs collected and sent; Complete Time: 00:11 [facility] 01/27 00:45 Order name: CT Abd/Pelvis - IV Contrast Only [facility] 01/27 02:32 Order name: Fecal Leukocyte Stain [facility] 01/27 02:32 Order name: Stool Culture [facility] 01/27 03:28 Order name: COVID-19 [facility] 01/27 03:28 Order name: CORONAVIRUS [facility] 01/27 00:10 Order name: Urine Dipstick-Ancillary (obtain specimen); Complete Time: 01:38 [facility] 01/27 00:10 Order name: Urine Test (obtain specimen); Complete Time: 01:38 [facility] 01/27 00:10 Order name: EKG - Nurse/Tech; Complete Time: 00:16 7 EC:45 Rate is 102 beats/min. Rhythm is regular, Sinus tachycardia. QRS [place] is Normal. PA mh7 interval is normal. QRS interval is normal. QT interval is normal. No Q waves. T waves are Normal. No ST changes noted. Clinical impression: LVH and Sinus tachycardia. Administered Medications: 00:16 Drug: Pepcid 20 mg Route: IVP; Site: right antecubital; rv 01:50 Follow up: Response: No adverse reaction rv 00:17 Drug: NS 0.9% 1000 ml Route: IV; Rate: 1000 ml; Site: right antecubital; rv 01:51 Follow up: IV Status: Completed infusion; IV Intake: 1000ml rv 00:17 Drug: morphine 4 mg {Note: RASS 0.} Route: IVP; Site: right antecubital; rv 01:50 Follow up: Response: No adverse reaction rv 00:17 Drug: Zofran (Ondansetron) 4 mg Route: IVP; Site: right antecubital; rv 01:50 Follow up: Response: No adverse reaction rv 01:15 Drug: Potassium Effervescent Tablet 50 mEq Route: PO; rv 01:49 Follow up: Response: No adverse reaction rv 01:15 Drug: Phenergan 12.5 mg Route: IVP; Site: right antecubital; rv 01:50 Follow up: Response: No adverse reaction rv 01:58 Drug: NS 0.9% 1000 ml Route: IV; Rate: 1000 ml; Site: right antecubital; rv 03:39 Follow up: IV Status: Completed infusion; IV Intake: 1000ml rv 02:35 Drug: Cipro 400 mg Volume: 200 ml; Route: IVPB; Infused Over: 60 mins; Site: right rv antecubital; 03:39 Follow up: IV Status: Completed infusion; IV Intake: 200ml rv 02:35 Drug: Flagyl 500 mg Volume: 100 ml; Route: IVPB; Rate: 200 ml/hr; Infused Over: 30 rv mins; Site: right antecubital; 03:38 Follow up: IV Status: Completed infusion; IV Intake: 100ml rv Disposition: 01/28/20 03:37 Hospitalization ordered by Tino Desir for Observation. Preliminary diagnosis are Colitis, Bandemia, Hypokalemia, Dehydration. - Bed requested for Telemetry/MedSurg (observation). - Status is Observation. rv - Condition is Stable. - Problem is new. - Symptoms have improved. Signatures: Dispatcher [employer] EDMS Eden Avelar RN RN Dwayne Moncada, DIGITAL FORENSICS INVESTIGATOR-C DIGITAL FORENSICS INVESTIGATOR-Cla1 Rusty Lyons RN RN rv Art Thomas MD MD mh7 Corrections: (The following items were deleted from the chart) 01:18 01:13 Magnesium ordered. EDMS EDMS 04:01 03:37 Hospitalization Ordered by Tino Desir DO for Observation. Preliminary diagnosis is Colitis; Bandemia; Hypokalemia; Dehydration. Bed requested for Telemetry/MedSurg (observation). Status is Observation. Condition is Stable. Problem is new. Symptoms have improved. mh7 04:19 04:01 01/28/2020 03:37 Hospitalization Ordered by Tino Desir DO for Observation. rv Preliminary diagnosis is Colitis; Bandemia; Hypokalemia; Dehydration. Bed requested for Telemetry/MedSurg (observation). Status is Observation. Condition is Stable. Problem is new. Symptoms have improved. mw
--- NOTE | 2020-01-28 03:55 | P.HP ---
Certification for Inpatient Patient admitted to: Observation With expected LOS: <2 Midnights Patient will require the following post-hospital care: None Practitioner: I am a practitioner with admitting privileges, knowledge of patient current condition, hospital course, and medical plan of care. Services: Services provided to patient in accordance with Admission requirements found in Title 42 Section 412.3 of the Code of Federal Regulations <Dwayne Moncada - Last Filed: 01/28/20 03:48> Patient admitted to: Observation <Tino Desir - Last Filed: 01/28/20 12:36> Patient History Date of Service: 01/28/20 Primary Care Provider: Dr. Shultz Reason for admission: Colitis History of Present Illness: 44-year-old female with no significant past medical history presents emergency department for abdominal pain and diarrhea. Patient reports that she went to family gathering on Monday with a had barbecue and she had a hamburger reporting that abdominal pain, cramping and diarrhea started soon after. Patient reports that she has been having 10 or more watery bowel movements per day since then. Patient also reports mild generalized abdominal pain and chills. Patient was evaluated in the emergency department and found to be dehydrated, hypokalemic with CT findings suggestive of mild acute colitis. Patient also found to have 44% bands. ED provider wishes to admit patient for further evaluation and management due to high band count. Stool studies were collected in the emergency department, patient will be tested for COVID. Blood cultures collected, pro calcitonin and lactate negative. When I saw the patient in the emergency department she was awake, alert, oriented x4. Patient does not appear septic at this time. Will be admitted for further evaluation and management. - Past Medical/Surgical History Diabetic: No -: None -: Cholecystectomy -: Appendectomy Psychosocial/ Personal History: Patient lives at home alone and is currently unemployed - Family History Family History: Reviewed- Non-Contributory - Social History Smoking Status: Never smoker Alcohol use: Yes CD- Drugs: No Caffeine use: Yes Place of Residence: Home <Dwayne Moncada - Last Filed: 01/28/20 03:48> Date of Service: 01/28/20 <Tino Desir - Last Filed: 01/28/20 12:36> Allergies No Known Allergies Allergy (Verified 01/28/20 04:57) Review of Systems 10-point ROS is otherwise unremarkable Gastrointestinal: Nausea, Vomiting, Abdominal Pain, Diarrhea <Dwayne Moncada - Last Filed: 01/28/20 03:48> Physical Examination - Physical Exam General: Alert, In no apparent distress HEENT: Atraumatic, PERRLA, Other (Mucous membranes dry) Neck: Supple, 2+ carotid pulse no bruit Respiratory: Clear to auscultation bilaterally, Normal air movement Cardiovascular: Regular rate/rhythm, Normal S1 S2 Capillary refill: <2 Seconds Gastrointestinal: No rebound, No guarding, Hyperactive, Tenderness (Mild generalized abdominal tenderness) Musculoskeletal: No erythema, No tenderness Integumentary: No rashes Neurological: Normal speech, Normal strength at 5/5 x4 extr, Normal tone, Normal affect - Studies Laboratory Data (last 24 hrs) 01/28/20 01:12: Magnesium Cancelled 01/28/20 00:15: WBC 7.9, Hgb 10.8 L, Hct 32.8 L, Plt Count 232 01/28/20 00:15: Sodium 137, Potassium 3.0 L, BUN 19 H, Creatinine 1.36 H, Glucose 126 H, Magnesium 2.1, Total Bilirubin 0.3, AST 46 H, ALT 67, Alkaline Phosphatase 96, Lipase 87 <Dwayne Moncada - Last Filed: 01/28/20 03:48> - Studies Laboratory Data (last 24 hrs) 01/28/20 01:12: Magnesium Cancelled 01/28/20 00:15: WBC 7.9, Hgb 10.8 L, Hct 32.8 L, Plt Count 232 01/28/20 00:15: Sodium 137, Potassium 3.0 L, BUN 19 H, Creatinine 1.36 H, Glucose 126 H, Magnesium 2.1, Total Bilirubin 0.3, AST 46 H, ALT 67, Alkaline Phosphatase 96, Lipase 87 Microbiology Data (last 24 hrs): 01/28/20 02:30 Stool Fecal Leukocyte Stain - Final <Tino Desir - Last Filed: 01/28/20 12:36> Assessment and Plan - Plan Assessment Acute colitis with 44% bandemia Dehydration secondary to frequent diarrhea Hypokalemia Plan Acute colitis with 44% bandemia: Continue with IV Cipro/Flagyl, IV hydration, clear liquid diet and advance as tolerated. Pain and nausea medications as needed. Repeat labs today at noon. DVT prophylaxis Lovenox 40 mg subcutaneous once daily. Anticipate clinical improvement next 24 hr. If patient is still doing okay and labs have improved possible discharge as early as today. Stool studies collected in the emergency department, have added on C. diff. Renal insufficiency likely secondary to prerenal from diarrhea: Continue with IV fluids. Will recheck chemistry with labs at noon. Hypokalemia: Potassium protocol in place. Discharge Plan: Home Plan to discharge in: 24 Hours - Advance Directives Does patient have a Living Will: No Does patient have a Durable POA for Healthcare: No - Code Status/Comfort Care Code Status Assessed: Yes (Patient is full code) Critical Care: No Time Spent Managing Pts Care (In Minutes): 55 <Dwayne Moncada - Last Filed: 01/28/20 03:48> - Plan Case discussed in detail with nurse practitioner. Agree with evaluation, and plan of care. Patient reassess this morning. Will start clear liquid diet. Will reassess and consider advancement of diet later today. Continue with current plan of care. See progress note for details. <Tino Desir - Last Filed: 01/28/20 12:36>
[2020-01-28] MEDS ORDERED: MORPHINE 2 MG/ML SYR IV PRN (04:18)
[2020-01-28] MEDS ORDERED: ACETAMINOPHEN 500 MG TAB PO PRN (04:18)
[2020-01-28] MEDS: NA CHLORIDE 0.9% 1,000 ML IV SCH ×4 (05:01→20:18)
[2020-01-28 06:09] VITALS: BMI 32.7
[2020-01-28 06:25] LABS: Potassium 3.6 mmol/L (3.5-5.1)
[2020-01-28] MEDS ORDERED: NA CHLORIDE 0.9% 1,000 ML IV ONE (07:19)
[2020-01-28] MEDS: CIPROFLOXACIN 400mg IV 400 MG/200 ML BAG IV SCH ×2 (08:11→20:15)
[2020-01-28] MEDS: ENOXAPARIN 40 MG/0.4 ML SQ SCH (08:13)
[2020-01-28] MEDS: METRONIDAZOLE 500mg IVPB 500 MG/100 ML BAG IV SCH ×2 (08:14→16:25)
[2020-01-28] MEDS ORDERED: POTASSIUM CL SA 10 MEQ TAB PO ONE (09:00)
[2020-01-28] MEDS: ONDANSETRON 4 MG/2 ML VIAL IV PRN ×2 (10:04→20:16)
--- NOTE | 2020-01-28 12:36 | P.PN ---
Subjective Date of Service: 01/28/20 Primary Care Provider: Dr. Shultz Chief Complaint: Colitis Subjective: Improving Physical Examination - Vital Signs Temperature: 98.5 F Blood Pressure: 134/64 Pulse: 104 Respirations: 16 Pulse Ox (%): 99 - Physical Exam General: Alert, In no apparent distress, Cooperative HEENT: Atraumatic Neck: Supple Respiratory: Clear to auscultation bilaterally, Normal air movement Cardiovascular: Normal pulses, Regular rate/rhythm Gastrointestinal: Tenderness (Patient still with left quadrant pain) Integumentary: No tenderness/swelling, No erythema, No warmth, No cyanosis Neurological: Normal speech, Normal strength at 5/5 x4 extr, Normal tone, Normal affect - Studies Laboratory Data (last 24 hrs) 01/28/20 01:12: Magnesium Cancelled 01/28/20 00:15: WBC 7.9, Hgb 10.8 L, Hct 32.8 L, Plt Count 232 01/28/20 00:15: Sodium 137, Potassium 3.0 L, BUN 19 H, Creatinine 1.36 H, Glucose 126 H, Magnesium 2.1, Total Bilirubin 0.3, AST 46 H, ALT 67, Alkaline Phosphatase 96, Lipase 87 Microbiology Data (last 24 hrs): 01/28/20 02:30 Stool Fecal Leukocyte Stain - Final Medications List Reviewed: Yes Assessment & Plan Discharge Plan: Home Plan to discharge in: 24 Hours Physician Review Additional Text: Assessment Acute colitis with bandemia Acute renal insufficiency likely related to dehydration and diarrhea Hypokalemia Anemia etiology unknown Plan Acute colitis with bandemia: Continue IV fluids and antibiotic therapy. Will provide IV fluid bolus. Will start with a clear liquid diet and advance as tolerated. Continue to monitor the patient closely. Stool cultures obtained including C diff. Anticipate improvement over the next 24 hr with possible discharge at that time. Will continue to reassess Acute Renal insufficiency likely related to dehydration and diarrhea: Continue IV fluids. Bolus given. Will monitor electrolytes closely. Hypokalemia: Potassium protocol in place. Anemia etiology unknown: Will check iron and B12 studies. Time Spent Managing Pts Care (In Minutes): 55
[2020-01-28 13:55] LABS: C.diff Antigen/Toxin Ag neg : Tox neg (NEG : NEG)
--- NOTE | 2020-01-28 15:48 | RAD REPORT ---
EXAM DESCRIPTION: CT - Abdomen Pelvis W Contrast - 01/28/2020 2:48 am CLINICAL HISTORY: ABD PAIN. Nausea, vomiting, diarrhea. COMPARISON: None Available. TECHNIQUE: CT of the abdomen and pelvis performed following IV administration of iodinated contras t. FINDINGS: Lung Bases: The visualized lung bases are clear. Bones: No destructive bone lesions identified. Abdomen: Liver: The liver has normal size and decreased density. No intrahepatic biliary dilatation. Gallbladder: Prior cholecystectomy. Spleen, Pancreas, and Adrenal Glands: The spleen, pancreas, and adrenal glands are unremarkable. Kidneys: No hydronephrosis or obstructing calculus. Vasculature: The aorta and IVC have normal caliber and position. Retroaortic left renal vein. The por antony vein is patent. The proximal visceral and renal arteries are patent. Stomach: Small hiatal hernia. Other: No free intraperitoneal air. Small amount of free fluid. Pelvis: Bladder: Urinary bladder is unremarkable. Bowel: Mild wall thickening throughout the colon with mild adjacent inflammatory change. Appendix: Not identified. Pelvis: Uterus is not enlarged. 2.0 cm dominant follicle in the left ovary. No follow-up imaging abigail mmended. IMPRESSION: 1. Mild diffuse acute colitis which may be of infectious or inflammatory etiology. 2. Hepatic steatosis. This exam was performed according to our departmental dose-optimization program, which includes autom ated exposure control, adjustment of the mA and/or kV according to patient size and/or use of iterati ve reconstruction technique. Electronically signed by: Bo Almaguer 01/28/2020 2:02 AM CDT Due to temporary technical issues with the PACS/Fluency reporting system, reports are being signed by the in house radiologist without review as a courtesy to ensure prompt reporting. The interpreting r adiologist is fully responsible for the content of the report.
[2020-01-29] MEDS: METRONIDAZOLE 500mg IVPB 500 MG/100 ML BAG IV SCH ×3 (00:49→18:22)
[2020-01-29] MEDS: NA CHLORIDE 0.9% 1,000 ML IV SCH (03:15)
[2020-01-29 05:29] LABS: Basophils % 0.3 % (0-1.3); Hematocrit 26.1 % (36.0-45.0); Lymphocytes % 22.8 % (15.3-44.8); MPV 10.2 fL (7.6-11.3); RBC Red Blood Cell Count 3.34 M/uL (3.86-4.86)
[2020-01-29 05:50] LABS: BUN Blood Urea Nitrogen 4 mg/dL (7-18); Bicarbonate 26 mmol/L (21-32); Glucose Level 98 mg/dL (74-106); Potassium 2.7 mmol/L (3.5-5.1); Sodium Level 141 mmol/L (136-145)
--- NOTE | 2020-01-29 05:54 | EKG ---
Test Date: 2020-01-28 Test Time: 00:17:20 Cap Blocker: PASTORA MEASUREMENT RESULTS: Intervals: Rate: 102 MS: 124 QRSD: 86 QT: 338 QTc: 440 [place]: P: -8 MS: 124 QRS: -17 T: 9 INTERPRETIVE STATEMENTS: Sinus tachycardia Minimal voltage criteria for LVH, may be normal variant Borderline ECG Compared to ECG 06/30/2019 00:16:16 Left ventricular hypertrophy now present Sinus rhythm no longer present Electronically Signed On 01-29-20 05:50:25 CDT by Mamadou Soto
[2020-01-29] MEDS: KCL 20 MEQ/100 mL IVPB 20 MEQ/100 ML BAG IV SCH ×3 (06:23→12:27)
[2020-01-29] MEDS ORDERED: NACHLORIDE 0.45% 1,000 ML IV SCH (08:00)
[2020-01-29 08:46] LABS: Ferritin 188.8 ng/mL (8-388)
[2020-01-29] MEDS: ENOXAPARIN 40 MG/0.4 ML SQ SCH (09:00)
[2020-01-29] MEDS ORDERED: MAGNESIUM SULFATE 1 gm IVPB 1 GM/100 ML BAG IV ONE (09:00)
[2020-01-29] MEDS: CIPROFLOXACIN 400mg IV 400 MG/200 ML BAG IV SCH ×2 (09:24→20:32)
[2020-01-29] MEDS: NACHLORIDE 0.45% 1,000 ML IV SCH ×2 (12:25→22:55)
--- NOTE | 2020-01-29 12:28 | P.PN ---
Subjective Date of Service: 01/29/20 Primary Care Provider: Dr. Shultz Chief Complaint: Colitis Subjective: Other (Abdominal pain improved. Diarrhea also improved.) Physical Examination - Vital Signs Temperature: 96.8 F Blood Pressure: 170/80 Pulse: 87 Respirations: 15 Pulse Ox (%): 99 - Physical Exam General: Alert, In no apparent distress, Cooperative HEENT: Atraumatic Neck: Supple Respiratory: Clear to auscultation bilaterally, Normal air movement Cardiovascular: Normal pulses, Regular rate/rhythm Gastrointestinal: Normal bowel sounds, Soft and benign, Non-distended, No masses, No rebound, No guarding, Tenderness (Pain to the abdomen significantly improved.) Neurological: Normal speech, Normal strength at 5/5 x4 extr, Normal tone, Normal affect - Studies Microbiology Data (last 24 hrs): 01/28/20 03:30 Nasopharnyx Coronavirus COVID-19 PCR - Final 01/28/20 02:30 Stool Fecal Leukocyte Stain - Final Medications List Reviewed: Yes Assessment & Plan Discharge Plan: Home Plan to discharge in: 24 Hours Physician Review Additional Text: Assessment Acute colitis with bandemia Acute renal insufficiency likely related to dehydration and diarrhea Hypokalemia Anemia etiology unknown Plan Acute colitis with bandemia: Will adjust IV fluids. Continue IV antibiotic therapy. Will add lactobacillus. C diff culture negative. Continue to advance diet. Diarrhea improved overall. Will consider discharge later today if significantly improved. Likely needs another day in the hospital. Anticipate discharge in the next 24 hr. Acute Renal insufficiency likely related to dehydration and diarrhea: Improved with IV fluids. IV fluids continues to be adjusted and and electrolyte protocol in place. Hypokalemia: Potassium protocol in place. Anemia etiology with iron and B12 deficiency: Will replace iron and B12. Monitor CBC closely. Patient will need EGD and colonoscopy as an outpatient. Time Spent Managing Pts Care (In Minutes): 55
[2020-01-29] MEDS: LACTOBACILLUS/ACIDOPHILUS TAB PO SCH ×2 (13:19→20:32)
[2020-01-29] MEDS ORDERED: POTASSIUM 25 MEQ EFFERV TAB PO ONE (19:00)
[2020-01-29] MEDS: FERROUS SULFATE 325 MG TAB PO SCH (20:32)
[2020-01-29] MEDS: ONDANSETRON 4 MG/2 ML VIAL IV PRN (22:53)
[2020-01-29 23:48] VITALS: O2SAT 100
[2020-01-30] MEDS: METRONIDAZOLE 500mg IVPB 500 MG/100 ML BAG IV SCH ×2 (00:35→08:28)
[2020-01-30] MEDS ORDERED: POTASSIUM CL SA 10 MEQ TAB PO ONE (01:07)
[2020-01-30 04:15] LABS: Absolute Lymphocytes (CBC) 1.6 K/uL (0.7-4.9); Basophils % 0.3 % (0-1.3); Hematocrit 28.4 % (36.0-45.0); Lymphocytes % 24.7 % (15.3-44.8); MPV 10.3 fL (7.6-11.3); RBC Red Blood Cell Count 3.62 M/uL (3.86-4.86)
[2020-01-30 04:31] LABS: BUN Blood Urea Nitrogen 3 mg/dL (7-18); Bicarbonate 27 mmol/L (21-32); Glucose Level 115 mg/dL (74-106); Magnesium 1.9 mg/dL (1.8-2.4); Potassium 3.4 mmol/L (3.5-5.1); Sodium Level 139 mmol/L (136-145)
--- NOTE | 2020-01-30 07:25 | P.DS ---
Admission Date: 01/28/20 Discharge Date: 01/30/20 Primary Care Provider: Dr. Shultz Disposition: ROUTINE DISCHARGE Discharge Condition: GOOD Reason for Admission: Colitis Consultations: none Procedures: CT Scan: FINDINGS: Lung Bases: The visualized lung bases are clear. Bones: No destructive bone lesions identified. Abdomen: Liver: The liver has normal size and decreased density. No intrahepatic biliary dilatation. Gallbladder: Prior cholecystectomy. Spleen, Pancreas, and Adrenal Glands: The spleen, pancreas, and adrenal glands are unremarkable. Kidneys: No hydronephrosis or obstructing calculus. Vasculature: The aorta and IVC have normal caliber and position. Retroaortic left renal vein. The portal vein is patent. The proximal visceral and renal arteries are patent. Stomach: Small hiatal hernia. Other: No free intraperitoneal air. Small amount of free fluid. Pelvis: Bladder: Urinary bladder is unremarkable. Bowel: Mild wall thickening throughout the colon with mild adjacent inflammatory change. Appendix: Not identified. Pelvis: Uterus is not enlarged. 2.0 cm dominant follicle in the left ovary. No follow-up imaging recommended. IMPRESSION: 1. Mild diffuse acute colitis which may be of infectious or inflammatory etiology. 2. Hepatic steatosis. Medical Problem List: Acute colitis with bandemia Acute renal insufficiency likely related to dehydration and diarrhea Hypokalemia Anemia likely secondary to chronic iron deficiency CT scan showing fatty liver and small hiatal hernia Suspect underlying GERD with small hiatal hernia Hypertension Obesity, BMI 32.7 Brief History of Present Illness: 44-year-old female presented with nausea, diarrhea and abdominal pain. Patient was evaluated emergency room. Patient found to have acute colitis. Patient admitted for further evaluation and treatment. Hospital Course: Patient presented with nausea, diarrhea and abdominal pain. Patient found to have acute colitis. Significant bandemia noted, this has resolved. Patient was admitted for further evaluation and treatment. Patient responded well to IV antibiotic therapy and IV fluids. C diff culture negative. Other stool culture pending. At discharge she is without significant nausea, abdominal pain. Diarrhea has significantly improved. At discharge she is able to tolerate her diet. At discharge patient will continue with Cipro 500 mg 1 pill twice daily and Flagyl 3 times a day for 7 days. Patient will also be provided probiotic 3 times a day. Patient may continue with a GI soft diet then advance to a high- fiber diet. Recommend follow up with her PCP in 1 week to follow up this hospitalization. Recommend to establish care with GI to further evaluate as the patient will require colonoscopy in the future to further address. CT scan also revealed fatty liver and small hiatal hernia. Suspect underlying GERD with hiatal hernia. Education on fatty liver and GERD/hiatal hernia will be provided. At discharge patient may continue with Pepcid 1 pill twice daily. Lifestyle modification education provided. Recommend to follow up with GI as an outpatient as the patient will require a EGD to further evaluate. Patient also found to be anemic. This is likely chronic with underlying iron deficiency. At discharge patient will continue with iron supplementation twice daily along with B12 supplementation. Recommend to recheck lab-CBC in 2-4 weeks to monitor her progress. Recommend follow up with GI to further evaluate. Patient should have EGD and colonoscopy in the future. Patient with hypertension. At discharge she will continue with lisinopril 20 mg daily. Recommend to maintain blood pressure less 150/80. Further adjustment can be done by her PCP. Vital Signs/Physical Exam: Temp Pulse Resp BP Pulse Ox 97.4 F 76 16 140/78 96 01/30/20 04:00 01/30/20 04:00 01/30/20 04:00 01/30/20 04:00 01/30/20 04:00 General: Alert, In no apparent distress, Oriented x3, Cooperative HEENT: Atraumatic Neck: Supple Respiratory: Clear to auscultation bilaterally, Normal air movement Cardiovascular: Normal pulses, Regular rate/rhythm Gastrointestinal: Normal bowel sounds, Soft and benign, Non-distended, No tenderness, No masses, No rebound, No guarding Integumentary: No tenderness/swelling, No erythema, No warmth, No cyanosis Neurological: Normal speech, Normal strength at 5/5 x4 extr, Normal tone, Normal affect Laboratory Data at Discharge: WBC 6.3 K/uL (4.3-10.9) D 01/30/20 03:41 Hgb 9.5 g/dL (12.0-15.0) L 01/30/20 03:41 Hct 28.4 % (36.0-45.0) L 01/30/20 03:41 Plt Count 240 K/uL (152-406) 01/30/20 03:41 Sodium 139 mmol/L (136-145) 01/30/20 03:41 Potassium 3.4 mmol/L (3.5-5.1) L 01/30/20 03:41 BUN 3 mg/dL (7-18) L 01/30/20 03:41 Creatinine 0.53 mg/dL (0.55-1.3) L 01/30/20 03:41 Glucose 115 mg/dL (74-106) H 01/30/20 03:41 Magnesium 1.9 mg/dL (1.8-2.4) 01/30/20 03:41 Total Bilirubin 0.3 mg/dL (0.2-1.0) 01/28/20 00:15 AST 46 U/L (15-37) H 01/28/20 00:15 ALT 67 U/L (12-78) 01/28/20 00:15 Alkaline Phosphatase 96 U/L (45-117) 01/28/20 00:15 Lipase 87 U/L (73-393) 01/28/20 00:15 Home Medications: Lisinopril [Zestril] 1 tab PO DAILY 01/28/20 Ciprofloxacin HCl [Cipro 500 MG Tablet] 500 mg PO BID #14 tab 01/30/20 Cyanocobalamin [Vitamin B-12*] 1,000 mcg PO DAILY #30 tab 01/30/20 Famotidine [Pepcid] 20 mg PO BID #60 tab 01/30/20 Ferrous Sulfate [Ferrous Sulfate*] 325 mg PO BID #60 tab 01/30/20 Lactobacillus Acidophilus [Acidophilus Lactobacilli] 1 each PO TID #90 capsule 01/30/20 metroNIDAZOLE [Flagyl] 500 mg PO Q8H #21 tablet 01/30/20 New Medications: Lactobacillus Acidophilus [Acidophilus Lactobacilli] 1 each PO TID #90 capsule Ciprofloxacin HCl [Cipro 500 MG Tablet] 500 mg PO BID #14 tab Ferrous Sulfate [Ferrous Sulfate*] 325 mg PO BID #60 tab metroNIDAZOLE [Flagyl] 500 mg PO Q8H #21 tablet Famotidine [Pepcid] 20 mg PO BID #60 tab Cyanocobalamin [Vitamin B-12*] 1,000 mcg PO DAILY #30 tab Patient Discharge Instructions: 1. Follow up PCP in 1 week to follow up this hospitalization. 2. Patient presented with nausea, diarrhea and abdominal pain. Patient found to have acute colitis. Significant bandemia noted, this has resolved. Patient was admitted for further evaluation and treatment. Patient responded well to IV antibiotic therapy and IV fluids. C diff culture negative. Other stool culture pending. At discharge she is without significant nausea, abdominal pain. Diarrhea has significantly improved. At discharge she is able to tolerate her diet. At discharge patient will continue with Cipro 500 mg 1 pill twice daily and Flagyl 3 times a day for 7 days. Patient will also be provided probiotic/lactobacillus 3 times a day. Patient may continue with a GI soft diet then advance to a high-fiber diet. Recommend follow up with her PCP in 1 week to follow up this hospitalization. Recommend to establish care with GI to further evaluate as the patient will require colonoscopy in the future to further address. 3. CT scan also revealed fatty liver and small hiatal hernia. Suspect underlying GERD with hiatal hernia. Education on fatty liver and GERD/hiatal hernia will be provided. At discharge patient may continue with Pepcid 1 pill twice daily. Lifestyle modification education provided. Recommend to follow up with GI as an outpatient as the patient will require an EGD to further evaluate. 4. Patient also found to be anemic. This is likely chronic with underlying iron deficiency. At discharge patient will continue with iron supplementation twice daily along with B12 supplementation. Recommend to recheck lab-CBC in 2-4 weeks to monitor her progress. Recommend follow up with GI to further evaluate. Patient should have EGD and colonoscopy in the future. 5. Patient with hypertension. At discharge she will continue with lisinopril 20 mg daily. Recommend to maintain blood pressure less 150/80. Further adjustment can be done by her PCP. Diet: soft diet then advance to high fiber diet Activity: Ad amina Time spent managing pt's care (in minutes): 55
[2020-01-30] MEDS: ENOXAPARIN 40 MG/0.4 ML SQ SCH (08:26)
[2020-01-30] MEDS: FERROUS SULFATE 325 MG TAB PO SCH (08:27)
[2020-01-30] MEDS: LACTOBACILLUS/ACIDOPHILUS TAB PO SCH (08:27)
[2020-01-30] MEDS: CIPROFLOXACIN 400mg IV 400 MG/200 ML BAG IV SCH (08:28)
[2020-01-30 08:31] VITALS: BP 156/85
[2020-01-30 08:39] VITALS: TEMP 97.2
[2020-01-30] MEDS ORDERED: CYANOCOBALAMIN 1,000 MCG TAB PO SCH (09:00)
[2020-01-30] MEDS ORDERED: lisinopriL 20 MG TAB PO SCH (09:00)
== END 2020-01-30 09:31 | disposition home or self-care (01) | DRG 373 ==
LOC: ER 23:48 → ERHOLD 01-28 03:48 → 2ND 01-28 04:19 → OBSVTOIN 01-28 13:46 → 2ND 01-28 18:41
PROVIDERS: ADMIT Family Medicine; ATTEND Family Medicine
DX: A02.0 Salmonella enteritis (principal); I10 Essential (primary) hypertension; E86.0 Dehydration; E87.6 Hypokalemia; D72.825 Bandemia; N28.9 Disorder of kidney and ureter, unspecified; D50.9 Iron deficiency anemia, unspecified; K76.0 Fatty (change of) liver, not elsewhere classified; K44.9 Diaphragmatic hernia without obstruction or gangrene; K21.9 Gastro-esophageal reflux disease without esophagitis; Z56.0 Unemployment, unspecified; Z60.2 Problems related to living alone; Z90.49 Acquired absence of other specified parts of digestive tract; Z20.828 Contact with and (suspected) exposure to other viral communicable diseases
CPT/HCPCS: 36415; 74177; 80048; 80076; 81003; 81025; 82607; 82728; 83540; 83605; 83690; 83735; 84132; 84145; 84466; 85025; 87040; 87045; 87046; 87077; 87177; 87186; 87209; 87324; 87449; 89055; 93005; 96361; 96365; 96368; 96375; 99285; G0378; J0744; J1650; J2270; J2405; J2550; J3475; J3480; J7030; Q9967; U0002

== ENCOUNTER 2021-05-20 16:38 | Emergency (ER) | payer OTHER ==
--- NOTE | 2021-05-20 20:51 | ER ---
Nurse's Notes [facility] Name: Loyda Moyer Age: 46 yrs Sex: Female : 1975 Arrival Date: 05/20/2021 Time: 16:40 Bed External Waiting [facility] MD: Diagnosis: Acute pharyngitis, unspecified;Cough Presentation: 05/20 16:56 Chief complaint: Patient states: sore throat, cough and chills began last night. Denies vg1 NVD. Coronavirus screen: Vaccine status: Patient reports receiving the 2nd dose of the covid vaccine. Client denies travel out of the [place] in the last 14 days. Ebola Screen: Patient negative for fever greater than or equal to 101.5 degrees Fahrenheit, and additional compatible Ebola Virus Disease symptoms. Initial Sepsis Screen: Does the patient meet any 2 criteria? No. Patient's initial sepsis screen is negative. Does the patient have a suspected source of infection? No. Patient's initial sepsis screen is negative. Risk Assessment: Do you want to hurt yourself or someone else? Patient reports no desire to harm self or others. Onset of symptoms was May 19, 2021. 16:56 Method Of Arrival: Ambulatory vg1 16:56 Acuity: JOCELYN 4 vg1 Triage Assessment: 16:59 General: Appears in no apparent distress. comfortable, Behavior is calm, cooperative. vg1 Pain: Complains of pain in throat Pain currently is 8 out of 10 on a pain scale. EENT: Throat is reddened. 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 - Social history:: Smoking status: Patient denies any tobacco usage or history of. Screenin:00 Abuse screen: Denies threats or abuse. Nutritional screening: No deficits noted. vc1 Tuberculosis screening: No symptoms or risk factors identified. Fall Risk None identified. Assessment: 20:00 General: Appears uncomfortable, ill, Behavior is calm, cooperative, appropriate for age.vc1 20:00 Pain: Complains of pain in throat. Neuro: No deficits noted. EENT: Reports pain when vc1 swallowing. Vital Signs: 16:56 BP 173 / 86; Pulse 84; Resp 16; Temp 97.9; Pulse Ox 99% ; Weight 72.57 kg; Height 5 ft. vg1 1 in. (154.94 cm); Pain 8/10; 16:56 Body Mass Index 30.23 (72.57 kg, 154.94 cm) vg1 ED Course: 16:40 Patient arrived in ED. ds1 16:59 Triage completed. vg1 16:59 Arm band placed on. vg1 17:06 Pravin Thomson PA is PHCP. cp 17:06 Trevin Escobar MD is Attending Physician. cp 17:07 COVID swab sent to lab. Flu and/or RSV swab sent to lab. Strep swab sent to lab. vg1 19:10 Pravin Thomson PA is PHCP. cp 21:00 Patient has correct armband on for positive identification. Patient sitting in Lobby. vc1 21:00 No provider procedures requiring assistance completed. Patient did not have IV access vc1 during this emergency room visit. Administered Medications: No medications were administered Outcome: 20:50 Discharge ordered by MD. cp 21:00 Discharged to home ambulatory, with significant other. vc1 21:00 Condition: good 21:00 Discharge instructions given to patient, significant other, Instructed on discharge instructions, Demonstrated understanding of instructions, Prescriptions given X 2. 22:06 Patient left the ED. vc1 Signatures: Cathy Thomas ds1 Pravin Thomosn PA PA cp Garcia, Victoria, RN RN vg1 Malina Penaloza RN RN vc1
--- NOTE | 2021-05-20 20:51 | EDPHYS ---
Physician Documentation [facility] Name: Loyda Moyer Age: 46 yrs Sex: Female : 1975 Arrival Date: 05/20/2021 Time: 16:40 Bed External Waiting Private MD: ED Physician Trevin Escobar HPI: 05/20 17:30 This 46 yrs old Female presents to ER via Ambulatory with complaints of Cough, cp Sore Throat. 17:30 The patient or guardian reports cough, that is intermittent, flu symptoms, low-grade cp fever, body aches. Onset: The symptoms/episode began/occurred yesterday. Associated signs and symptoms: Pertinent positives: sore throat, Pertinent negatives: chest pain, diarrhea, vomiting. 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 - Social history:: Smoking status: Patient denies any tobacco usage or history of. ROS: 17:35 Constitutional: Positive for body aches, Negative for fever, poor PO intake. cp 17:35 Eyes: Negative for injury, pain, redness, and discharge. cp 17:35 ENT: Positive for sore throat, Negative for drainage from ear(s), ear pain, difficulty swallowing, difficulty handling secretions. 17:35 Cardiovascular: Negative for chest pain. 17:35 Respiratory: Positive for cough, Negative for shortness of breath, wheezing. 17:35 Abdomen/GI: Negative for abdominal pain, vomiting, diarrhea, constipation. 17:35 Neuro: Negative for altered mental status, headache, weakness. 17:35 All other systems are negative. Exam: 17:40 Constitutional: The patient appears in no acute distress, alert, awake, cp non-diaphoretic, non-toxic, well developed, well nourished. 17:40 Head/Face: Normocephalic, atraumatic. cp 17:40 Eyes: Periorbital structures: appear normal, Conjunctiva: normal, no exudate, no injection, Sclera: no appreciated abnormality, Lids and lashes: appear normal, bilaterally. 17:40 ENT: External ear(s): are unremarkable, Ear canal(s): are normal, clear, TM's: dullness, bilaterally, Nose: nasal drainage, that is minimal, and is seen coming from both nares, that is clear, Mouth: Lips: moist, Oral mucosa: moist, Posterior pharynx: Airway: no evidence of obstruction, patent, Tonsils: no enlargement, no exudate, erythema, that is mild, exudate, is not appreciated. 17:40 Neck: ROM/movement: is normal, is supple, no meningismus, no nuchal rigidity, Lymph nodes: no appreciated lymphadenopathy. 17:40 Chest/axilla: Inspection: normal. 17:40 Cardiovascular: Rate: normal, Rhythm: regular, Edema: is not appreciated, JVD: is not appreciated. 17:40 Respiratory: the patient does not display signs of respiratory distress, Respirations: normal, no use of accessory muscles, no retractions, labored breathing, is not present, Breath sounds: decreased breath sounds, are not appreciated, stridor, is not appreciated, + upper airway congestion. wheezing: is not appreciated. 17:40 Abdomen/GI: Exam negative for discomfort, distension, guarding, Inspection: abdomen appears normal. 17:40 Back: pain, is absent, ROM is normal. 17:40 Skin: no rash present. 17:40 Neuro: Orientation: to person, place \\T\\ time. Mentation: is normal, Motor: moves all fours, strength is normal, Sensation: is normal, Gait: is steady, at a normal pace, without difficulty. Vital Signs: 16:56 BP 173 / 86; Pulse 84; Resp 16; Temp 97.9; Pulse Ox 99% ; Weight 72.57 kg; Height 5 ft. vg1 1 in. (154.94 cm); Pain 8/10; 16:56 Body Mass Index 30.23 (72.57 kg, 154.94 cm) vg1 MDM: 20:50 Patient medically screened. cp 20:50 Differential diagnosis: bronchitis, flu, URI, pneumonia, COVID-19. cp 20:50 Data reviewed: vital signs, nurses notes. cp 20:50 Counseling: I had a detailed discussion with the patient and/or guardian regarding: the cp historical points, exam findings, and any diagnostic results supporting the discharge/admit diagnosis, to return to the emergency department if symptoms worsen or persist or if there are any questions or concerns that arise at home. ED course: VSS. Patient appears non-toxic and no signs of respiratory distress. COVID-19 results pending, will discharge to home to notify of results. Recommend quarantine and f/u with pcp worsening symptoms. 05/20 17:02 Order name: COVID-19/FLU A+B (Document "Date of Onset" if Symptomatic) [facility] 05/20 17:02 Order name: Strep; Complete Time: 21:51 vg1 05/20 17:02 Order name: COVID-19/FLU A+B; Complete Time: 21:51 EDMS 05/20 18:12 Order name: Throat Culture EDMS Administered Medications: No medications were administered Disposition Summary: 05/20/21 20:50 Discharge Ordered Location: Home cp Problem: new cp Symptoms: are unchanged cp Condition: Stable cp Diagnosis - Acute pharyngitis, unspecified cp - Cough cp Followup: cp - With: Private Physician - When: 2 - 3 days - Reason: blood pressure recheck Discharge Instructions: - Discharge Summary Sheet cp - Pharyngitis cp - Cough, Adult cp Forms: - Medication Reconciliation Form cp - Thank You Letter cp - Antibiotic Education cp - Prescription Opioid Use cp Prescriptions: - Ibuprofen 800 mg Oral Tablet - take 1 tablet by ORAL route every 8 hours As needed take with food; 30 tablet; cp Refills: 0, Product Selection Permitted - Tessalon Perles 100 mg Oral Capsule - take 2 capsule by ORAL route every 8 hours As needed; 30 capsule; Refills: 0, cp Product Selection Permitted Signatures: Dispatcher [employer] EDMS Dwayne Moncada, HEMSTITCHER-C HEMSTITCHER-Cla1 Pravin Thomson PA PA cp Garcia, Victoria, RN RN vg1
[2021-05-20 21:45] LABS: SARS-COV-2 RT PCR POSITIVE (NEGATIVE)
[2021-05-20 22:22] VITALS: BP 173/86; TEMP 97.9; O2SAT 99
== END 2021-05-20 22:06 | disposition home or self-care (01) ==
LOC: ER 16:38
DX: U07.1 COVID-19 (principal); J02.9 Acute pharyngitis, unspecified; I10 Essential (primary) hypertension
CPT/HCPCS: 87070; 87081; 0240U; 99283

== ENCOUNTER 2022-01-05 09:42 | Emergency (ER) | payer OTHER ==
[2022-01-05] MEDS ORDERED: IBUPROFEN 400 MG TAB ONE (11:57)
--- NOTE | 2022-01-05 12:31 | EDPHYS ---
Physician Documentation [facility] Name: Loyda Moyer Age: 46 yrs Sex: Female : 1975 Arrival Date: 01/05/2022 Time: 09:42 Bed 11 Private MD: ED Physician Jacek Kate HPI: 01/05 10:11 This 46 yrs old Female presents to ER via Ambulatory with complaints of Runny jmm Nose, Headache, Sore Throat. 10:11 The patient or guardian reports cough. Onset: The symptoms/episode began/occurred jmm gradually, 2 day(s) ago. Modifying factors: The symptoms are alleviated by nothing, the symptoms are aggravated by nothing. Associated signs and symptoms: Pertinent positives: fever, sore throat. It is unknown whether or not the patient has had similar symptoms in the past. 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 - Social history:: Smoking status: Patient denies any tobacco usage or history of. ROS: 10:11 Cardiovascular: Negative for chest pain, palpitations, and edema, Respiratory: Negative jmm for shortness of breath, cough, wheezing, and pleuritic chest pain. 10:11 Constitutional: Positive for body aches, chills. 10:11 ENT: Positive for sore throat. 10:11 All other systems are negative. Exam: 10:11 Constitutional: This is a well developed, well nourished patient who is awake, alert, jmm and in no acute distress. Head/Face: atraumatic. Eyes: EOMI, no conjunctival erythema appreciated ENT: Moist Mucus Membranes Neck: Trachea midline, Supple Chest/axilla: Normal chest wall appearance and motion. Cardiovascular: Regular rate and rhythm. No edema appreciated Respiratory: Normal respirations, no respiratory distress appreciated Abdomen/GI: Non distended Back: Normal ROM Skin: General appearance color normal MS/ Extremity: Moves all extremities, no obvious deformities appreciated, no edema noted to the lower extremities Neuro: Awake and alert Psych: Behavior is normal, Mood is normal, Patient is cooperative and pleasant Vital Signs: 10:06 BP 150 / 79; Pulse 77; Resp 18; Temp 98.2; Pulse Ox 100% ; Weight 76.2 kg; Height 5 ft. ap3 2 in. (157.48 cm); 12:01 BP 168 / 89; Pulse 74; Resp 16; Temp 98.3; Pulse Ox 100% ; Pain 5/10; jl7 10:06 Body Mass Index 30.73 (76.20 kg, 157.48 cm) ap3 MDM: 10:47 Patient medically screened. [facility] 12:29 Data reviewed: vital signs, nurses notes. Counseling: I had a detailed discussion with lizet the patient and/or guardian regarding: the historical points, exam findings, and any diagnostic results supporting the discharge/admit diagnosis, lab results, the need for outpatient follow up, to return to the emergency department if symptoms worsen or persist or if there are any questions or concerns that arise at home. ED course: Patient is alert nontoxic in appearance in the ED. No signs of respiratory distress. Patient advised follow-up PCP and otherwise given strict return precautions. Patient understood and agrees plan of care.. 01/05 10:11 Order name: Strep; Complete Time: 10:57 ap3 01/05 10:11 Order name: Flu; Complete Time: 10:57 ap3 01/05 10:11 Order name: COVID-19 SARS RT PCR (Document "Date of Onset" if Symptomatic); Complete ap3 Time: 11:33 01/05 11:00 Order name: Throat Culture EDMS Administered Medications: 12:01 Drug: Ibuprofen 800 mg Route: PO; jl7 12:47 Follow up: Response: No adverse reaction kb3 Disposition: 13:24 Co-signature as Attending Physician, Jacek Kate MD I agree with the assessment and kdr plan of care. Disposition Summary: 01/05/22 12:30 Discharge Ordered Location: Home [facility] Condition: Stable [facility] Diagnosis - Coronavirus infection, unspecified [facility] Followup: [facility] - With: Private Physician - When: 2 - 3 days - Reason: Recheck today's complaints, Continuance of care, Re-evaluation by your physician Discharge Instructions: - Discharge Summary Sheet [facility] - COVID-19 [facility] Forms: - Medication Reconciliation Form [facility] - Thank You Letter jmm - Antibiotic Education [facility] - Work release form bd - Prescription Opioid Use lizet Signatures: Dispatcher [employer] EDMS Jacek Kate MD MD kdr Johnny Singletary PA PA jmm Leal, Jahala RN RN jl7 Rose Willingham RN RN ap3 Kiesha Anguiano RN kb3
--- NOTE | 2022-01-05 12:31 | ER ---
Nurse's Notes [facility] Name: Loyda Moyer Age: 46 yrs Sex: Female : 1975 Arrival Date: 01/05/2022 Time: 09:42 Bed 11 Private MD: Diagnosis: Coronavirus infection, unspecified Presentation: 01/05 10:06 Chief complaint: Patient states: she hasn't been feeling good recently. Patient states ap3 she has a sore throat, headache and feels like she has a cold. Patient states the symptoms began 2 days ago. Coronavirus screen: Client presents with at least one sign or symptom that may indicate coronavirus-19. Ebola Screen: No symptoms or risks identified at this time. Initial Sepsis Screen: Does the patient meet any 2 criteria? No. Patient's initial sepsis screen is negative. Does the patient have a suspected source of infection? No. Patient's initial sepsis screen is negative. Risk Assessment: Do you want to hurt yourself or someone else? Patient reports no desire to harm self or others. Onset of symptoms was January 03, 2022. 10:06 Method Of Arrival: Ambulatory ap3 10:06 Acuity: JOCELYN 4 ap3 Triage Assessment: 10:08 Headache History: The patient has had previous headaches and this one is less severe ap3 than previous episodes. General: Appears comfortable, Behavior is calm, cooperative. Pain: Complains of pain in headhache and generalized body aches Pain currently is 5 out of 10 on a pain scale. Pain began gradually, 2-3 days ago. Also complains of no other associated symptoms. Neuro: Level of Consciousness is awake, alert, obeys commands, Oriented to person, place, time, situation, Gait is steady, Speech is normal. Cardiovascular: Patient's skin is warm and dry. Respiratory: Airway is patent Respiratory effort is even, unlabored, Respiratory pattern is regular, symmetrical. 10:09 EENT: Reports nasal congestion pain when swallowing. 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 - Social history:: Smoking status: Patient denies any tobacco usage or history of. Screenin:09 Abuse screen: Denies threats or abuse. Nutritional screening: No deficits noted. ap3 Tuberculosis screening: No symptoms or risk factors identified. 12:01 Fall Risk None identified. jl7 Assessment: 12:01 General: Appears in no apparent distress. uncomfortable, Behavior is calm, cooperative, jl7 appropriate for age. Pain: Complains of pain in HAN Pain currently is 5 out of 10 on a pain scale. Neuro: Level of Consciousness is awake, alert, obeys commands, Oriented to person, place, time, situation. Cardiovascular: Patient's skin is warm and dry. Respiratory: Airway is patent Respiratory effort is even, unlabored, Respiratory pattern is regular, symmetrical. Derm: Skin is pink, warm \T\ dry. Vital Signs: 10:06 BP 150 / 79; Pulse 77; Resp 18; Temp 98.2; Pulse Ox 100% ; Weight 76.2 kg; Height 5 ft. ap3 2 in. (157.48 cm); 12:01 BP 168 / 89; Pulse 74; Resp 16; Temp 98.3; Pulse Ox 100% ; Pain 5/10; jl7 10:06 Body Mass Index 30.73 (76.20 kg, 157.48 cm) ap3 ED Course: 09:42 Patient arrived in ED. am2 09:50 Johnny Singletary PA is PHCP. [facility] 09:50 Jacek Kate MD is Attending Physician. [facility] 10:08 Triage completed. ap3 10:10 Arm band placed on right wrist. ap3 10:11 Patient has correct armband on for positive identification. Adult w/ patient. ap3 10:30 COVID swab sent to lab. Flu and/or RSV swab sent to lab. Strep swab sent to lab. jl7 11:45 Faith Vasquez RN is Primary Nurse. jl7 12:03 No provider procedures requiring assistance completed. Patient did not have IV access jl7 during this emergency room visit. Administered Medications: 12:01 Drug: Ibuprofen 800 mg Route: PO; jl7 12:47 Follow up: Response: No adverse reaction kb3 Medication: 10:11 VIS not applicable for this client. ap3 Outcome: 12:30 Discharge ordered by . [facility] 12:46 Discharged to home ambulatory. kb3 12:46 Condition: stable 12:46 Discharge instructions given to patient, Instructed on discharge instructions, follow up and referral plans. medication usage, 5 day quarantine Demonstrated understanding of instructions, follow-up care, medications. 12:47 Patient left the ED. kb3 Signatures: Johnny Singletary PA PA jmm Leal, Jahala, RN RN jl7 Rose Perry am2 Rose Willingham RN RN ap3 Kiesha Anguiano RN RN kb3
[2022-01-05 13:40] VITALS: O2SAT 100
[2022-01-05 13:48] VITALS: BP 168/89; TEMP 98.3
== END 2022-01-05 12:47 | disposition home or self-care (01) ==
LOC: ER 09:42
DX: U07.1 COVID-19 (principal); I10 Essential (primary) hypertension
CPT/HCPCS: 87070; 87081; 87804 ×2; U0003

== ENCOUNTER 2022-03-06 22:08 | Emergency (ER) | payer OTHER ==
[2022-03-06 22:42] LABS: Urine Blood Trace-intact (Negative); Urine Glucose Negative (Negative); Urine Protein Negative (Negative); Urine Specific Gravity 1.025 (1.005-1.030); Urine pH 6.5 (5.0-7.0)
[2022-03-06 23:00] LABS: Barbiturates NEGATIVE (NEGATIVE); Benzodiazepines NEGATIVE (NEGATIVE); Cocaine NEGATIVE (NEGATIVE); METHAMPHETAM NEGATIVE (NEGATIVE); Methadone NEGATIVE (NEGATIVE); Opiates NEGATIVE (NEGATIVE); Phencyclidine NEGATIVE (NEGATIVE); THC Cannibis NEGATIVE (NEGATIVE)
--- NOTE | 2022-03-06 23:00 | RAD REPORT ---
EXAM DESCRIPTION: RAD - Chest Single View - 03/06/2022 10:51 pm CLINICAL HISTORY: CHEST PAIN COMPARISON: Chest Single View dated 07/01/2019; Chest Single View dated 06/30/2019; Chest Pa And Lat ( 2 Views) dated 10/26/2017; Chest Single View dated 06/12/2017CHEST PA AND LAT 2 VIEW dated 07/22/2010 FINDINGS: Lines: None. Lungs: No evidence of edema or pneumonia. Pleural: No significant pleural effusions or pneumothorax. Cardiac: The heart size is within normal limits. Mediastinum: Within normal limits. Bones: No acute fractures. Other: None IMPRESSION: No acute cardiopulmonary disease.
[2022-03-06] MEDS ORDERED: ASPIRIN 81 MG CHEWABLE TABLET ONE (23:14)
[2022-03-06 23:26] LABS: Protime INR 0.94
[2022-03-06 23:28] LABS: Absolute Lymphocytes (CBC) 3.3 K/uL (0.7-4.9); Hematocrit 34.6 % (36.0-45.0); Lymphocytes % 32.9 % (15.3-44.8); MCV 91.8 fL (80-100); MPV 10.1 fL (7.6-11.3); RBC Red Blood Cell Count 3.77 M/uL (3.86-4.86)
[2022-03-06 23:43] LABS: ALT/SGPT 117 U/L (12-78); AST/SGOT 29 U/L (15-37); Albumin 3.2 g/dL (3.4-5.0); Alkaline Phosphatase 57 U/L (45-117); BUN Blood Urea Nitrogen 18 mg/dL (7-18); Bicarbonate 28 mmol/L (21-32); Bilirubin Total 0.1 mg/dL (0.2-1.0); Glomerular Filtration Rate 102 ml/min (=/>90); Glucose Level 130 mg/dL (74-106); Magnesium 1.9 mg/dL (1.8-2.4); NT PRO-BNP 88 pg/mL (<125); Potassium 3.4 mmol/L (3.5-5.1); Protein, Total 6.9 g/dL (6.4-8.2); Sodium Level 138 mmol/L (136-145); Troponin High Sensitivity 5.4 pg/mL (<58.9)
[2022-03-06 23:48] LABS: Bilirubin Direct < 0.1 mg/dL (0-0.2)
[2022-03-06 23:58] LABS: Urine Specific Gravity/Preg 1.025 (1.005-1.030)
[2022-03-07] MEDS ORDERED: METOPROLOL TAR 25 MG TAB ONE (00:09)
[2022-03-07] MEDS ORDERED: METOPROLOL TARTRATE 5 MG/5 ML INJ IV ONE (00:09)
[2022-03-07] MEDS ORDERED: POTASSIUM 25 MEQ EFFERV TAB ONE (00:09)
[2022-03-07] MEDS ORDERED: NA CHLORIDE 0.9% 1,000 ML ONE (00:10)
[2022-03-07] MEDS ORDERED: lisinopriL 20 MG TAB ONE (02:23)
--- NOTE | 2022-03-07 02:46 | ER ---
Nurse's Notes [facility] Name: Loyda Moyer Age: 46 yrs Sex: Female : 1975 Arrival Date: 03/06/2022 Time: 22:11 Bed 18 Private MD: Diagnosis: Chest pain, unspecified;Hypertensive heart disease without heart failure Presentation: 03/06 22:16 Chief complaint: Sharp intermittent midsternal chest pain that started while driving hb approx 2 hours ago. Coronavirus screen: At this time, the client does not indicate any symptoms associated with coronavirus-19. Ebola Screen: No symptoms or risks identified at this time. Risk Assessment: Do you want to hurt yourself or someone else? Patient reports no desire to harm self or others. Onset of symptoms was March 06, 2022. 22:16 Method Of Arrival: Ambulatory hb 22:16 Acuity: JOCELYN 3 hb 23:11 Initial Sepsis Screen: Does the patient meet any 2 criteria? No. Patient's initial lg3 sepsis screen is negative. Does the patient have a suspected source of infection? No. Patient's initial sepsis screen is negative. Historical: - Allergies: 22:17 No Known Allergies; hb - Home Meds: 22:17 lisinopril Oral [Active]; hb - PMHx: 22:17 Hypertension; hb - PSHx: 22:17 Appendectomy; Cholecystectomy; hb - Immunization history:: Adult Immunizations up to date. - Social history:: Smoking status: Patient denies any tobacco usage or history of. Screenin:08 Abuse screen: Denies threats or abuse. Denies injuries from another. Nutritional lg3 screening: No deficits noted. Tuberculosis screening: No symptoms or risk factors identified. Fall Risk None identified. Assessment: 23:08 General: Appears in no apparent distress. comfortable, Behavior is calm, cooperative. lg3 Pain: Complains of pain in mid-sternal area Pain does not radiate. Quality of pain is described as crampy, pressure, Pain began 2 hours ago. Neuro: No deficits noted. Poon Agitation-Sedation Scale (RASS): 0 - Alert and Calm Level of Consciousness is awake, alert, obeys commands, Oriented to person, place, time, situation. Cardiovascular: No deficits noted. Reports chest pain, Capillary refill < 3 seconds Clubbing of nail beds is absent JVD is absent Patient's skin is warm and dry. Rhythm is sinus rhythm. Respiratory: No deficits noted. Airway is patent Trachea midline Respiratory effort is even, unlabored, Respiratory pattern is regular, symmetrical, Breath sounds are clear bilaterally. Denies cough, shortness of breath. GI: No deficits noted. No signs and/or symptoms were reported involving the gastrointestinal system. Abdomen is round non-distended, Bowel sounds present X 4 quads. Abd is soft and non tender X 4 quads. : No deficits noted. No signs and/or symptoms were reported regarding the genitourinary system. EENT: No deficits noted. No signs and/or symptoms were reported regarding the EENT system. Derm: No deficits noted. No signs and/or symptoms reported regarding the dermatologic system. Skin is intact, is healthy with good turgor, Skin is dry, Skin is normal, Skin temperature is warm. Musculoskeletal: No deficits noted. No signs and/or symptoms reported regarding the musculoskeletal system. Circulation, motion, and sensation intact. Range of motion: intact in all extremities. 03/07 00:19 Reassessment: Patient appears in no apparent distress at this time. No changes from lg3 previously documented assessment. Patient and/or family updated on plan of care and expected duration. Pain level reassessed. Patient is alert, oriented x 3, equal unlabored respirations, skin warm/dry/pink. Patient states symptoms have improved. 02:35 Reassessment: Patient appears in no apparent distress at this time. No changes from lg3 previously documented assessment. Patient and/or family updated on plan of care and expected duration. Pain level reassessed. Patient is alert, oriented x 3, equal unlabored respirations, skin warm/dry/pink. Patient denies pain at this time. Patient states feeling better. Patient states symptoms have improved. Vital Signs: 03/06 22:16 BP 233 / 106; Pulse 82; Resp 16; Temp 99.1(TE); Pulse Ox 100% on R/A; Weight 73.94 kg; hb Height 5 ft. 1 in. (154.94 cm); Pain 08/22; 23:10 BP 182 / 88; Pulse 78; Resp 18 S; Pulse Ox 99% on R/A; lg3 03/07 00:19 BP 183 / 81; Pulse 73; Resp 16; Pulse Ox 100% on R/A; lg3 02:35 BP 170 / 79; Pulse 69; Resp 18 S; Pulse Ox 100% on R/A; lg3 03:11 BP 161 / 87; Pulse 72; Resp 17 S; Pulse Ox 98% on R/A; lg3 03:12 BP 161 / 87; Pulse 72; Resp 17; Pulse Ox 98% on R/A; lg3 03/06 22:16 Body Mass Index 30.80 (73.94 kg, 154.94 cm) hb ED Course: 03/06 22:11 Patient arrived in ED. hb 22:17 Triage completed. hb 22:17 Arm band placed on. hb 22:25 Pravin Thomson PA is PHCP. cp 22:25 Pravin Bo MD is Attending Physician. cp 22:43 UDS Sent. lg3 22:53 XRAY Chest (1 view) In Process Unspecified. EDMS 22:56 Christine Rivers, RN is Primary Nurse. lg3 23:07 Basic Metabolic Panel Sent. lg3 23:07 CBC with Diff Sent. lg3 23:07 LFT's Sent. lg3 23:07 Magnesium Sent. lg3 23:07 NT PRO-BNP Sent. lg3 23:08 Patient has correct armband on for positive identification. Placed in gown. Bed in low lg3 position. Call light in reach. Side rails up X 1. Client placed on continuous cardiac and pulse oximetry monitoring. NIBP monitoring applied. monitor technician on. Door closed. Noise minimized. Warm blanket given. Family accompanied patient. 23:08 PT-INR Sent. lg3 23:08 Troponin HS Sent. lg3 23:08 Inserted saline lock: 20 gauge in right antecubital area, using aseptic technique. lg3 Blood collected. Patient maintains SpO2 saturation greater than 95% on room air. 03/07 02:34 Troponin HS: redraw at 0230 Sent. lg3 02:46 Riley Hickey MD is Referral Physician. cp 03:13 No provider procedures requiring assistance completed. IV discontinued, intact, lg3 bleeding controlled, No redness/swelling at site. Pressure dressing applied. Administered Medications: 03/06 23:15 Drug: Aspirin Chewable Tablet 324 mg Route: PO; lg3 23:46 Follow up: Response: No adverse reaction tw5 03/07 00:18 Drug: Metoprolol 5 mg Route: IVP; Site: right antecubital; lg3 02:35 Follow up: Response: No adverse reaction; No change in condition lg3 00:18 Drug: Potassium Effervescent Tablet 25 mEq Route: PO; lg3 02:35 Follow up: Response: No adverse reaction lg3 00:18 Drug: NS 0.9% 1000 ml Route: IV; Rate: 1000 ml; Site: right antecubital; lg3 02:35 Follow up: Response: No adverse reaction; IV Status: Completed infusion; IV Intake: lg3 1000ml 00:19 Drug: Metoprolol 25 mg Route: PO; lg3 02:35 Follow up: Response: No adverse reaction lg3 02:35 Drug: Lisinopril 20 mg Route: PO; lg3 03:11 Follow up: BP 161 / 87; Pulse 72 bpm; Resp 17 bpm Spontaneous; Pulse Ox 98% RA lg3 Medication: 03:28 VIS not applicable for this client. lg3 Intake: 02:35 IV: 1000ml; Total: 1000ml. lg3 Outcome: 02:46 Discharge ordered by . bernardo 03:28 Discharged to home ambulatory, with significant other. lg3 03:28 Condition: stable 03:28 Discharge instructions given to patient, Instructed on discharge instructions, follow up and referral plans. medication usage, Demonstrated understanding of instructions, follow-up care, medications, Prescriptions given X 2. 03:28 Patient left the ED. lg3 Signatures: Dispatcher [employer] EDMS Pravin Thomson PA PA cp Baxter, Heather, RN RN hb Gibson, Lacie, RN RN 3 Arina Heard tw5
--- NOTE | 2022-03-07 02:46 | EDPHYS ---
Physician Documentation [facility] Name: Loyda Moyer Age: 46 yrs Sex: Female : 1975 Arrival Date: 03/06/2022 Time: 22:11 Bed 18 Private MD: ED Physician Pravin Bo HPI: 03/06 22:30 This 46 yrs old Female presents to ER via Ambulatory with complaints of Chest cp Pain > 30 y/o, Chest Tightness. 22:30 The patient or guardian reports chest pain that is located primarily in the substernal cp area. 22:30 Onset: 2 hour(s) ago. cp 22:30 The pain does not radiate. Associated signs and symptoms: Pertinent negatives: cp abdominal pain, cough, diaphoresis, dizziness, lower extremity pain, lower extremity swelling, shortness of breath, syncope, vomiting. The chest pain is described as tightness. Duration: The patient or guardian reports a single episode, that is now resolved. Historical: - Allergies: 22:17 No Known Allergies; hb - Home Meds: 22:17 lisinopril Oral [Active]; hb - PMHx: 22:17 Hypertension; hb - PSHx: 22:17 Appendectomy; Cholecystectomy; hb - Immunization history:: Adult Immunizations up to date. - Social history:: Smoking status: Patient denies any tobacco usage or history of. ROS: 22:35 Constitutional: Negative for body aches, chills, fever, poor PO intake. cp 22:35 Eyes: Negative for injury, pain, redness, and discharge. cp 22:35 Cardiovascular: Positive for chest pain, Negative for edema, palpitations. 22:35 Respiratory: Negative for cough, shortness of breath, wheezing. 22:35 Abdomen/GI: Negative for abdominal pain, vomiting, diarrhea, constipation. cp 22:35 Neck: Negative for pain with movement, pain at rest, stiffness. cp 22:35 Back: Negative for pain at rest, pain with movement. 22:35 : Negative for urinary symptoms. 22:35 Neuro: Negative for altered mental status, dizziness, headache, weakness. 22:35 All other systems are negative. Exam: 22:35 ECG was reviewed by the Attending Physician. cp 22:40 Constitutional: The patient appears in no acute distress, alert, awake, cp non-diaphoretic, non-toxic, well developed, well nourished. 22:40 Head/Face: Normocephalic, atraumatic. cp 22:40 Eyes: Periorbital structures: appear normal, Conjunctiva: normal, no exudate, no injection, Sclera: no appreciated abnormality, Lids and lashes: appear normal, bilaterally. 22:40 ENT: External ear(s): are unremarkable, Nose: is normal, Mouth: Lips: moist, Oral mucosa: pink and intact, moist, Posterior pharynx: Airway: no evidence of obstruction, patent. 22:40 Neck: ROM/movement: is normal, is supple, without pain, no range of motions limitations. 22:40 Chest/axilla: Inspection: normal. 22:40 Cardiovascular: Rate: normal, Rhythm: regular, Edema: is not appreciated, JVD: is not appreciated. 22:40 Respiratory: the patient does not display signs of respiratory distress, Respirations: normal, no use of accessory muscles, no retractions, labored breathing, is not present, Breath sounds: are clear throughout, no decreased breath sounds, no stridor, no wheezing. 22:40 Abdomen/GI: Inspection: abdomen appears normal, Bowel sounds: active, all quadrants, cp Palpation: abdomen is soft and non-tender, in all quadrants, rebound tenderness, is not appreciated, involuntary guarding, is not appreciated. 22:40 Back: pain, is absent, ROM is normal. cp 22:40 Neuro: Orientation: to person, place \T\ time. Mentation: is normal, Motor: moves all fours, strength is normal, Sensation: is normal. 03/07 02:34 ECG was reviewed by the Attending Physician. cp Vital Signs: 03/06 22:16 BP 233 / 106; Pulse 82; Resp 16; Temp 99.1(TE); Pulse Ox 100% on R/A; Weight 73.94 kg; hb Height 5 ft. 1 in. (154.94 cm); Pain 4/10; 23:10 BP 182 / 88; Pulse 78; Resp 18 S; Pulse Ox 99% on R/A; lg3 03/07 00:19 BP 183 / 81; Pulse 73; Resp 16; Pulse Ox 100% on R/A; lg3 02:35 BP 170 / 79; Pulse 69; Resp 18 S; Pulse Ox 100% on R/A; lg3 03:11 BP 161 / 87; Pulse 72; Resp 17 S; Pulse Ox 98% on R/A; lg3 03:12 BP 161 / 87; Pulse 72; Resp 17; Pulse Ox 98% on R/A; lg3 03/06 22:16 Body Mass Index 30.80 (73.94 kg, 154.94 cm) hb MDM: 03/06 22:25 Patient medically screened. cp 23:00 Differential diagnosis: abnormal EKG, acute myocardial infarction, pleurisy, pneumonia, cp pneumothorax, pulmonary embolus, stable angina, unstable angina. 03/07 02:45 Data reviewed: vital signs, nurses notes, lab test result(s), EKG, radiologic studies, cp plain films. 02:45 The patient was given aspirin in the Emergency Department. Test interpretation: by ED cp physician or midlevel provider: ECG, plain radiologic studies. Counseling: I had a detailed discussion with the patient and/or guardian regarding: the historical points, exam findings, and any diagnostic results supporting the discharge/admit diagnosis, lab results, radiology results, the need for outpatient follow up, a oracle soa architect, a family practitioner, to return to the emergency department if symptoms worsen or persist or if there are any questions or concerns that arise at home. Response to treatment: the patient's symptoms have markedly improved after treatment, and as a result, I will discharge patient. Special discussion: Based on the patient's history, exam, and Dx evaluation, there is no indication for emergent intervention or inpatient Tx. It is understood by the patient/guardian that if the Sx's persist or worsen they need to return immediately for re-evaluation. 03/06 22: Order name: Basic Metabolic Panel; Complete Time: 00:03 cp 03/07 00:03 Interpretation: Normal except: K 3.4; GLUC 130. cp 03/0624 Order name: CBC with Diff; Complete Time: 23:44 cp 03/07 00:03 Interpretation: Normal except: RBC 3.77; HGB 11.8; HCT 34.6. cp 03/0624 Order name: LFT's; Complete Time: 00:03 cp 03/07 00:03 Interpretation: Normal except: ALT 117; BILIT 0.1; ALB 3.2; GLOB 3.7; A/G 0.9. cp 03/06 22:24 Order name: Magnesium; Complete Time: 00:03 cp 03/06 22:24 Order name: NT PRO-BNP; Complete Time: 00:03 cp 03/06 22:24 Order name: PT-INR; Complete Time: 23:44 cp 03/06 22:24 Order name: Troponin HS; Complete Time: 00:03 cp 03/07 00:03 Interpretation: Within normal limits: Troponin HS 5.4. cp 03/06 22:24 Order name: XRAY Chest (1 view); Complete Time: 23:44 cp 03/06 22:24 Order name: UDS; Complete Time: 23:44 cp 03/06 22:42 Order name: Urine Dipstick-Ancillary; Complete Time: 23:44 EDMS 03/06 23:18 Order name: Urine --Ancillary (enter results); Complete Time: 00:03 wm 03/07 02:00 Order name: Troponin HS: redraw at 0230; Complete Time: 03:16 cp 03/06 22:24 Order name: EKG; Complete Time: 22:25 cp 03/06 22:24 Order name: Cardiac monitoring; Complete Time: 22:31 cp 03/06 22:24 Order name: EKG - Nurse/Tech; Complete Time: 22:31 cp 03/06 22:24 Order name: IV Saline Lock; Complete Time: 23:07 cp 03/06 22:24 Order name: Labs collected and sent; Complete Time: 23:07 cp 03/06 22:24 Order name: O2 Per Protocol; Complete Time: 22:31 cp 03/06 22:24 Order name: O2 Sat Monitoring; Complete Time: 22:31 cp 03/06 22:24 Order name: Urine Dipstick-Ancillary (obtain specimen); Complete Time: 22:43 cp 03/06 22:24 Order name: Urine Test (obtain specimen); Complete Time: 22:43 cp 03/07 02:13 Order name: EKG - Nurse/Tech; Complete Time: 02:34 cp EC/23 22:35 Rate is 80 beats/min. Rhythm is regular. GA interval is normal at 124 msec. QRS cp interval is normal. QT interval is normal. T waves are Inverted in lead aVR. Interpreted by me. Reviewed by me. 03/07 02:34 Rate is 68 beats/min. Rhythm is regular. GA interval is normal. QRS interval is normal. cp QT interval is normal. T waves are Inverted. Interpreted by me. Reviewed by me. Administered Medications: 03/06 23:15 Drug: Aspirin Chewable Tablet 324 mg Route: PO; lg3 23:46 Follow up: Response: No adverse reaction tw5 03/07 00:18 Drug: Metoprolol 5 mg Route: IVP; Site: right antecubital; lg3 02:35 Follow up: Response: No adverse reaction; No change in condition lg3 00:18 Drug: Potassium Effervescent Tablet 25 mEq Route: PO; lg3 02:35 Follow up: Response: No adverse reaction lg3 00:18 Drug: NS 0.9% 1000 ml Route: IV; Rate: 1000 ml; Site: right antecubital; lg3 02:35 Follow up: Response: No adverse reaction; IV Status: Completed infusion; IV Intake: lg3 1000ml 00:19 Drug: Metoprolol 25 mg Route: PO; lg3 02:35 Follow up: Response: No adverse reaction lg3 02:35 Drug: Lisinopril 20 mg Route: PO; lg3 03:11 Follow up: BP 161 / 87; Pulse 72 bpm; Resp 17 bpm Spontaneous; Pulse Ox 98% RA lg3 Disposition Summary: 03/07/22 02:46 Discharge Ordered Location: Home cp Problem: new cp Symptoms: have improved cp Condition: Stable cp Diagnosis - Chest pain, unspecified cp - Hypertensive heart disease without heart failure cp Followup: cp - With: - When: 2 - 3 days - Reason: Recheck today's complaints Discharge Instructions: - Discharge Summary Sheet cp - Nonspecific Chest Pain, Adult cp - Hypertension, Adult cp - Aspirin and Your Heart cp - Form - Blood Pressure Record Sheet cp - How to Take Your Blood Pressure cp Forms: - Medication Reconciliation Form cp - Thank You Letter cp - Antibiotic Education cp - Prescription Opioid Use cp - Work release form wm Prescriptions: - Lisinopril 20 mg Oral Tablet - take 1 tablet by ORAL route once daily; 30 tablet; Refills: 0, Product cp Selection Permitted - Toprol XL 50 mg Oral Tablet - take 1 tablet by ORAL route once daily; 20 tablet; Refills: 0, Product kj Selection Permitted Addendum: 03/08/2022 04:17 Co-signature as Attending Physician, Pravin Bo MD I agree with the assessment and c mendosa plan of care. Signatures: Dispatcher [employer] EDPravin Heart MD MD cha Page, Corey, Perri Mcdermott cp RN RN Christine Little RN RN 3 Arina Heard [facility]
[2022-03-07 04:05] VITALS: TEMP 99.1
[2022-03-07 04:10] VITALS: BP 161/87; O2SAT 98
--- NOTE | 2022-03-07 18:36 | EKG ---
Test Date: 2022-03-07 Test Time: 02:35:15 Integration Analyst: MEASUREMENT RESULTS: Intervals: Rate: 68 W[place]: 132 QRSD: 84 QT: 442 QTc: 469 [place]: P: 4 WY: 132 QRS: 8 T: 23 INTERPRETIVE STATEMENTS: Normal sinus rhythm Normal ECG Compared to ECG 03/06/2022 22:31:18 No significant changes Electronically Signed On 03-07-22 18:35:42 CDT by Riley Hickey
--- NOTE | 2022-03-07 18:37 | EKG ---
Test Date: 2022-03-06 Test Time: 22:31:18 Merchandise Complaint Adjuster: MEASUREMENT RESULTS: Intervals: Rate: 80 [place]: 124 QRSD: 84 QT: 390 QTc: 449 [employer]: P: -6 [place]: 124 QRS: -9 T: 24 INTERPRETIVE STATEMENTS: Normal sinus rhythm Normal ECG Compared to ECG 01/28/2020 00:17:20 Sinus tachycardia no longer present Left ventricular hypertrophy no longer present Electronically Signed On 03-07-22 18:36:30 CDT by Riley Hickey
== END 2022-03-07 03:28 | disposition home or self-care (01) ==
LOC: ER 22:08
DX: I11.9 Hypertensive heart disease without heart failure (principal); I10 Essential (primary) hypertension
CPT/HCPCS: 96361; 93005 ×2; 85025; 80048; 36415; 83735; 81025; 85610; 80076; 81003; 84484 ×2; 83880; 80307; 71045; 96374; 99285; J7030

== ENCOUNTER 2023-09-05 20:44 | Emergency (ER) | payer OTHER, SELFPAY ==
[2023-09-05] MEDS ORDERED: NA CHLORIDE 0.9% 1,000 ML ONE (21:39)
[2023-09-05 22:02] LABS: Absolute Eosinophils 0.2 K/uL (0-0.5); Absolute Lymphocytes (CBC) 3.6 K/uL (0.7-4.9); Absolute Monocytes 0.7 K/uL (0.1-1.3); Absolute Neutrophil 5.5 K/uL (1.8-8.0); Basophils % 0.4 % (0-1.3); Eosinophils % 1.6 % (0-4.4); Hemoglobin 12.2 g/dL (12.0-15.0); Lymphocytes % 35.9 % (15.3-44.8); MCH 32.6 pg (27.0-35.0); MCHC 34.9 g/dL (32.0-36.0); MCV 93.5 fL (80-100); MPV 9.6 fL (7.6-11.3); Monocytes % 7.2 % (3.3-12.3); Neutrophils % 54.9 % (41.7-73.7); Nucleated Red Blood Cells % 0.1 % (0-0); Platelets 275 thou/uL (152-406); RBC Red Blood Cell Count 3.75 M/uL (3.86-4.86); Red Cell Distribution Width 13.9 % (12.1-15.2)
[2023-09-05 22:08] LABS: Specific Gravity 1.024 (1.005-1.030); Sqamous Epithelial <5 /HPF (None Seen); Urine Bacteria None Seen /HPF (<20); Urine Bilirubin NEGATIVE (Negative); Urine Blood 2+ (Negative); Urine Clarity Clear (Clear); Urine Color Light-Yellow (Yellow); Urine Culture Reflex Order NOT NEEDED; Urine Glucose NEGATIVE (Negative); Urine Ketones NEGATIVE (Negative); Urine Microscopic Reflex YN ORDER UMIC; Urine Nitrite NEGATIVE (Negative); Urine Protein NEGATIVE (Negative); Urine RBC <5 /HPF (None Seen); Urine Urobilinogen 1+ (Normal); Urine WBC <5 /HPF (<5)
[2023-09-05 22:20] LABS: Albumin 3.5 g/dL (3.4-5.0); Albumin/Globulin Ratio 0.9 (1.1-1.8); Anion Gap 8.8 mEq/L (5.0-15.0); Bilirubin Total 0.3 mg/dL (0.2-1.0); Potassium 2.8 mEq/L (3.5-5.1); Protein, Total 7.5 g/dL (6.4-8.2)
[2023-09-05] MEDS ORDERED: POTASSIUM 25 MEQ EFFERV TAB ONE (22:26)
--- NOTE | 2023-09-06 00:30 | EDPHYS ---
Physician Documentation [facility] Name: Loyda Moyer Age: 48 yrs Sex: Female : 1975 Arrival Date: 09/05/2023 Time: 20:44 Bed 11 Private MD: ED Physician Pravin Bo HPI: 09/05 00:42 This 48 yrs old Female presents to ER via Ambulatory with complaints of Bloody kb Stools, HANDS AND FEET TINGLING. 00:42 Patient is a 48-year-old female who presents for intermittent bright red blood with kb bowel movements that started approximately 2 weeks ago. Reports pain to left lower quadrant that started today as well as tingling in her hands and feet. Denies fever, nausea, vomiting. Denies shortness of breath or dizziness.. 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 - Infectious Disease History:: Denies. - Social history:: Smoking status: Patient denies any tobacco usage or history of. ROS: 09/05 00:41 Constitutional: As per HPI kb Exam: 00:41 Constitutional: This is a well developed, well nourished patient who is awake, alert, kb and in no acute distress. Head/Face: Normocephalic, atraumatic. ENT: Moist Mucous membranes Cardiovascular: Regular rate Respiratory: Respirations even and unlabored. No increased work of breathing. Talking in full sentences Skin: Warm, dry with normal turgor. Normal color. MS/ Extremity: Pulses equal, no cyanosis. Neurovascular intact. Full, normal range of motion. Neuro: Awake and alert, GCS 15, oriented to person, place, time, and situation. Moves all extremities. Normal gait. 00:41 Abdomen/GI: Inspection: abdomen appears normal, Bowel sounds: normal, Palpation: soft, in all quadrants, mild abdominal tenderness, in the left lower quadrant, Rectal exam: Stool: normal, hemorrhoid(s), external, without bleeding, without inflammation, without thrombosis, without pain, Vital Signs: 09/04 20:54 BP 186 / 100; Pulse 79; Resp 18; Temp 97.8(TE); Pulse Ox 100% on R/A; Weight 83.1 kg cm10 (M); Height 5 ft. 1 in. ; Pain 6/10; 21:59 BP 119 / 67; Pulse 70; Resp 15 S; Pulse Ox 99% on R/A; as6 23:37 BP 103 / 55; Pulse 75; Resp 16 S; Pulse Ox 100% on R/A; as6 09/05 00:42 BP 135 / 86; Pulse 83; Resp 16; Pulse Ox 97% on R/A; Pain 0/10; cm10 09/04 20:54 Body Mass Index 34.62 (83.10 kg, 154.94 cm) cm10 09/04 20:54 Pain Scale: Adult cm10 09/05 00:42 Pain Scale: Adult cm10 MDM: 09/04 21:01 Patient medically screened. kb 09/05 00:42 Data reviewed: vital signs, nurses notes. kb 00:42 Differential diagnosis: diverticulitis, hemorrhoids. 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 ED course: Pt has follow up appt scheduled with GI for next month. 09/04 21:37 Order name: CBC with Diff; Complete Time: 22:19 kb 09/04 21:37 Order name: CMP; Complete Time: 22:23 kb 09/04 21:37 Order name: Lipase; Complete Time: 22:23 kb 09/04 21:37 Order name: Test, Urine; Complete Time: 22:10 kb 09/04 21:37 Order name: Urinalysis w/ reflexes; Complete Time: 22:10 kb 09/04 21:37 Order name: CT Abd/Pelvis - IV Contrast Only kb 09/04 21:37 Order name: IV Saline Lock; Complete Time: 21:50 kb 09/04 21:37 Order name: Labs collected and sent; Complete Time: 21:50 kb Administered Medications: 09/04 21:50 Drug: NS 0.9% IV 1000 ml IV at 1 bolus Per protocol; 1000 mL bolus Route: IV; Rate: 1 as6 bolus; Site: right antecubital; 09/05 00:43 Follow up: Response: No adverse reaction; IV Status: Completed infusion; IV Intake: cm10 1000ml 09/04 22:30 Drug: Potassium PO Effervescent Tablet 50 mEq PO once; dissolve in 4 ounces of water or as6 juice Route: PO; 09/05 00:43 Follow up: Response: No adverse reaction cm10 Disposition Summary: 09/06/23 00:29 Discharge Ordered Notes: Location: Home kb Condition: Stable kb Diagnosis - Other hemorrhoids kb - Hypokalemia kb Followup: kb - With: Emergency Department - When: As needed - Reason: Worsening of condition Followup: kb - With: Private Physician - When: 2 - 3 days - Reason: Recheck today's complaints, Continuance of care, Re-evaluation by your physician Discharge Instructions: - Discharge Summary Sheet kb - Hemorrhoids, [id number] kb - Hypokalemia kb Forms: - Medication Reconciliation Form kb - Antibiotic Education kb - Prescription Opioid Use kb - Patient Portal Instructions kb - Leadership Thank You Letter kb - Work release form cm10 Signatures: Dispatcher [employer] EDLyric Baez, SCHOOL JANITOR-C SCHOOL JANITOR-Evan Carcamo RN RN as6 Becca Delcid RN RN cm10 Corrections: (The following items were deleted from the chart) 09/04 21:38 21:38 CBC+H.LAB.BRZ ordered. EDMS EDMS 21:38 21:38 COMPREHENSIVE METABOLIC PANEL+C.LAB.BRZ ordered. EDMS EDMS 21:38 21:38 LIPASE+C.LAB.BRZ ordered. EDMS EDMS 21:38 21:38 Test, Urine+UC.LAB.BRZ ordered. EDMS EDMS 21:38 21:38 Urinalysis+U.LAB.BRZ ordered. EDMS EDMS
--- NOTE | 2023-09-06 00:30 | ER ---
Nurse's Notes [facility] Name: Loyda Moyer Age: 48 yrs Sex: Female : 1975 Arrival Date: 09/05/2023 Time: 20:44 Bed 11 Private MD: Diagnosis: Other hemorrhoids;Hypokalemia Presentation: 09/04 20:54 Chief complaint: Patient states: rectal bleeding X1 week. PT states that she was having cm10 abdominal pain but it has resolved. Pt reports that she has been having episodes of bilateral feet tingling and left arm tingling (has resolved). Coronavirus screen: Client denies travel out of the [place] in the last 14 days. At this time, the client does not indicate any symptoms associated with coronavirus-19. Ebola Screen: Patient denies travel to an Ebola-affected area in the 21 days before illness onset. No symptoms or risks identified at this time. Initial Sepsis Screen: Does the patient meet any 2 criteria? No. Patient's initial sepsis screen is negative. Does the patient have a suspected source of infection? No. Patient's initial sepsis screen is negative. Risk Assessment: Do you want to hurt yourself or someone else? Patient reports no desire to harm self or others. Onset of symptoms was September 05, 2023. 20:54 Method Of Arrival: Ambulatory cm10 20:54 Acuity: JOCELYN 3 cm10 Triage Assessment: 20:57 General: Appears in no apparent distress. comfortable, Behavior is calm, cooperative. cm10 Pain: Complains of pain in abdomen Pain does not radiate. Pain currently is 6 out of 10 on a pain scale. Neuro: No deficits noted. Level of Consciousness is awake, alert, obeys commands, Oriented to person, place, time, situation. Respiratory: No deficits noted. Airway is patent Respiratory effort is even, unlabored, Respiratory pattern is regular, symmetrical. GI: Reports lower abdominal pain, rectal bleeding. 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 - Infectious Disease History:: Denies. - Social history:: Smoking status: Patient denies any tobacco usage or history of. Screenin:31 [facility] ED Fall Risk Assessment (Adult) History of falling in the last 3 months, as6 including since admission No falls in past 3 months (0 pts) Confusion or Disorientation No (0 pts) Intoxicated or Sedated No (0 pts) Impaired Gait No (0 pts) Mobility Assist Device Used No (0 pt) Altered Elimination No (0 pt) Score/Fall Risk Level 0 - 2 = Low Risk Oriented to surroundings, Maintained a safe environment, Educated pt \T\ family on fall prevention, incl call for assistance when getting out of bed, Assessed \T\ reinforced patient's understanding of fall precautions. Abuse screen: Denies threats or abuse. Denies injuries from another. Nutritional screening: No deficits noted. Tuberculosis screening: No symptoms or risk factors identified. Assessment: 21:30 General: Appears in no apparent distress. comfortable, Behavior is calm, cooperative. as6 Pain: Denies pain. Neuro: Reports numbness in right hand, left hand, right foot, left foot and left arm paresthesias in right hand, left hand, right foot, left foot and left arm. Cardiovascular: Capillary refill < 3 seconds Patient's skin is warm and dry. Respiratory: Respiratory effort is even, unlabored, Respiratory pattern is regular, symmetrical. GI: Reports rectal bleeding. : No deficits noted. No signs and/or symptoms were reported regarding the genitourinary system. EENT: No deficits noted. No signs and/or symptoms were reported regarding the EENT system. Derm: Skin is intact, is healthy with good turgor. Musculoskeletal: Circulation, motion, and sensation intact. 23:37 Reassessment: Patient appears in no apparent distress at this time. Patient and/or as6 family updated on plan of care and expected duration. Pain level reassessed. Patient is alert, oriented x 3, equal unlabored respirations, skin warm/dry/pink. Vital Signs: 20:54 BP 186 / 100; Pulse 79; Resp 18; Temp 97.8(TE); Pulse Ox 100% on R/A; Weight 83.1 kg cm10 (M); Height 5 ft. 1 in. ; Pain 6/10; 21:59 BP 119 / 67; Pulse 70; Resp 15 S; Pulse Ox 99% on R/A; as6 23:37 BP 103 / 55; Pulse 75; Resp 16 S; Pulse Ox 100% on R/A; as6 09/05 00:42 BP 135 / 86; Pulse 83; Resp 16; Pulse Ox 97% on R/A; Pain 0/10; cm10 09/04 20:54 Body Mass Index 34.62 (83.10 kg, 154.94 cm) cm10 09/04 20:54 Pain Scale: Adult cm10 09/05 00:42 Pain Scale: Adult cm10 ED Course: 09/04 20:47 Patient arrived in ED. gm2 20:56 Triage completed. cm10 20:57 Arm band placed on Patient placed in waiting room. cm10 21:01 Lyric Martinez FNP-C is PHCP. kb 21:01 Pravin Bo MD is Attending Physician. kb 21:31 Bed in low position. Call light in reach. Warm blanket given. as6 21:50 Inserted saline lock: 20 gauge in right antecubital area, using aseptic technique. as6 Blood collected. 21:50 CBC with Diff Sent. as6 21:50 CMP Sent. as6 21:50 Lipase Sent. as6 21:50 Test, Urine Sent. as6 21:50 Urinalysis w/ reflexes Sent. as6 23:18 CT Abd/Pelvis - IV Contrast Only In Process Unspecified. EDMS 09/05 00:42 Provided Education on: Follow-up instructions. cm10 00:42 No provider procedures requiring assistance completed. IV discontinued, intact, cm10 bleeding controlled, No redness/swelling at site. Pressure dressing applied. Administered Medications: 09/04 21:50 Drug: NS 0.9% IV 1000 ml IV at 1 bolus Per protocol; 1000 mL bolus Route: IV; Rate: 1 as6 bolus; Site: right antecubital; 09/05 00:43 Follow up: Response: No adverse reaction; IV Status: Completed infusion; IV Intake: cm10 1000ml 09/04 22:30 Drug: Potassium PO Effervescent Tablet 50 mEq PO once; dissolve in 4 ounces of water or as6 juice Route: PO; 09/05 00:43 Follow up: Response: No adverse reaction cm10 Medication: 09/04 21:31 VIS not applicable for this client. as6 Intake: 09/05 00:43 IV: 1000ml; Total: 1000ml. cm10 Outcome: 00:29 Discharge ordered by MD. whitehead 00:42 Discharged to home ambulatory, 10 00:42 Condition: good 00:42 Discharge instructions given to patient, Instructed on discharge instructions, follow up and referral plans. Demonstrated understanding of instructions, follow-up care, 00:43 Patient left the ED. cm10 Signatures: Dispatcher [employer] EDLyric Baez, ASMITA-Jodee TIAN-Evan Carcamo RN RN as6 Becca Delcid RN RN cm10 Laila Whyte 2
[2023-09-06 01:06] VITALS: BP 135/86; TEMP 97.8; O2SAT 97
--- NOTE | 2023-09-06 14:33 | RAD REPORT ---
EXAM DESCRIPTION: CT - Abdomen Pelvis W Contrast - 09/06/2023 6:19 am CLINICAL HISTORY: ABD PAIN. COMPARISON: CT abdomen/pelvis from January 28, 2020. TECHNIQUE: CT of the abdomen and pelvis was performed following intravenous administration of iodina demetrice contrast. Oral contrast was not administered. Axial, coronal, and sagittal soft tissue window rec onstructions were created and sent to PACS. This exam was performed according to our departmental dose-optimization program, which includes autom ated exposure control, adjustment of the mA and/or kV according to patient size and/or use of iterati ve reconstruction technique. FINDINGS: Thoracic: No significant abnormality. Hepatobiliary: Diffuse hepatic steatosis. Mild hepatomegaly, measuring 17 cm in length. No concerning hepatic lesion identified. The portal veins are patent. The gallbladder is surgically absent. No keesha iary ductal dilatation. Pancreas: Unremarkable. Spleen: Unremarkable. Gastrointestinal: No evidence of bowel obstruction or perienteric inflammation. The appendix is not v isualized. Small stool burden. Adrenals: No abnormality identified in either adrenal gland. Renal: No concerning parenchymal abnormality in either kidney. No hydronephrosis or urolithiasis. Bladder/Reproductive: Mild circumferential wall thickening of the underdistended urinary bladder. Brooke pected small posterior fundal subserosal uterine fibroid. Small fluid-filled structure between the lo wer cervix/vagina and the rectum measuring 2.5 cm. No associated inflammatory changes. There are mult iple smaller adjacent endocervical/nabothian cysts visualized in the cervix. Vascular/Lymphatics: No lymphadenopathy identified by CT size criteria. Abdominal aorta is normal in caliber. Musculoskeletal: No concerning osseous lesion identified. Partially imaged bilateral breast implants. Fluid / peritoneum: No significant free fluid. No free intraperitoneal air identified. IMPRESSION: 1. Mild urinary bladder wall thickening which could be related to cystitis or underdis tention. 2. Small cystic structure between the cervix/vagina and rectum with no inflammatory changes. Findin gs favor an exophytic cervical nabothian cyst. Likely of little clinical significance. Consider corre lation with pelvic ultrasound. Electronically signed by: Ngoc Camacho MD 09/05/2023 11:35 PM CDT Due to temporary technical issues with the PACS/Fluency reporting system, reports are being signed by the in house radiologists without review as a courtesy to insure prompt reporting. The interpreting radiologist is fully responsible for the content of the report
== END 2023-09-06 00:43 | disposition home or self-care (01) ==
LOC: ER 20:44
DX: K64.8 Other hemorrhoids (principal); E87.6 Hypokalemia; I10 Essential (primary) hypertension
CPT/HCPCS: 36415; 74177; 80053; 81001; 81025; 83690; 85025; 96360; 96361; 99284; J7030; Q9967

== ENCOUNTER 2024-01-23 21:35 | Emergency (ER) | payer OTHER ==
--- OUTSIDE RECORDS SUMMARY | 2024-01-23 21:38 | XMS REPORT | Continuity of Care Document ---
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 than a cervical swab for Chlamydia trachomatis and/or Neisseria gonorrhoeae NAAT. Lab Interpretation (test code = 09855-9) Normal [facility] CHLAMYDIA AMPLIFIED [id number] 18:29:00* Test Item Value Reference Range Interpretation Comme nts C. trachomatis Nucleic Acid (test code = 22697-5) Negative Negative N. gonorrhoeae Nucleic Acid (test code = 29021-4) Negative Negative DENZEL (test code = DENZEL) Reliable results a re dependent on adequate specimen collection. ? A positive result obtained from a patient after therapeutic treatment cannot be interpreted as indicating the presence of viable organisms. ?For patients on whom a false positive result may have adverse psychosocial impact, retesting is advised. Indeterminate: Unable to generate a valid test result on this specimen. ?Please submit a new specimen for repeat testing if clinically indicated. Chlamydia trachomatis/Neisseria gonorrhoeae nucleic acid amplification testing (NAAT) has not been validated for medico-legal specimens (sexual abuse in link-pubertal and pre-pubertal children, sexual assault, and legal cases). ?Culture for Chlamydia trachomatis and/or Neisseria gonorrhoeae from clinically appropriate sites is the method of choice in these cases. ? Results from this testing should be interpreted in conjunction with other laboratory and clinical data available to the clinician.For females in general, a urine specimen is a second-line option because it is considered less sensitive than a cervical swab for Chlamydia trachomatis and/or Neisseria gonorrhoeae NAAT. Lab Interpretation (test code = 68106-1) [facility] AG-AB WITH [id number] 04:27:00* Test Item Value Reference Range Interpretation Comme nts HIV Semi-quantitative (test code = 48587-0) Negative Negative DENZEL (test code = DENZEL) Non-reactive for HIV-1 antigen and HIV-1/HIV-2 antibodies. ?No laboratory evidence of HIV infection. ?Repeat in 2-4 weeks if acute HIV infection is suspected. [facility] AG-AB WITH [id number] 04:27:00* Test Item Value Reference Range Interpretation Comme nts HIV Semi-quantitative (test code = 57641-2) Negative Negative DENZEL (test code = DENZEL) Non-reactive for HIV-1 antigen and HIV-1/HIV-2 antibodies. ?No laboratory evidence of HIV infection. ?Repeat in 2-4 weeks if acute HIV infection is suspected. [facility] URINALYSIS W SPECIFIC [id number] 15:59:00* Test Item Value Reference Range Interpretation Comme nts POCT U SP GRAV (test code = 3255) . 1.005-1.025 POCT PH U (test code = 3254) 5 mg/dl 5-8 POCT U LEUK EST (test code = 3263) Trace Negative - Negative POCT U NIT (test code = 3262) Neg Negative - Negati ve POCT U PROT (test code = 3259) Trace Negative - Negat josé miguel POCT U GLU (test code = 3256) Neg Negative - Negati ve POCT U KETONE (test code = 3258) None Negative - Neg ative POCT U UROBILI (test code = 3260) . 0.2-1 POCT U BILI (test code = 3261) . Negative - Negat josé miguel POCT U BLD (test code = 3257) Negative - Negati ve POCT U COLOR (test code = 3266) POCT U APPEAR (test code = 3267) [facility] URINALYSIS W SPECIFIC [id number] 15:59:00* Test Item Value Reference Range Interpretation Comme nts POCT U SP GRAV (test code = 3255) . 1.005-1.025 POCT PH U (test code = 3254) 5 mg/dl 5-8 POCT U LEUK EST (test code = 3263) Trace Negative - Negative POCT U NIT (test code = 3262) Neg Negative - Negati ve POCT U PROT (test code = 3259) Trace Negative - Negat josé miguel POCT U GLU (test code = 3256) Neg Negative - Negati ve POCT U KETONE (test code = 3258) None Negative - Neg ative POCT U UROBILI (test code = 3260) . 0.2-1 POCT U BILI (test code = 3261) . Negative - Negat josé miguel POCT U BLD (test code = 3257) Negative - Negati ve POCT U COLOR (test code = 3266) POCT U APPEAR (test code = 3267) [facility] W/O SPECIFIC [id number] 15:19:00* Test Item Value Reference Range Interpretation Comme nts POCT PH U (test code = 3254) 5 mg/dl 5-8 POCT U LEUK EST (test code = 3263) Trace Negative - Negative POCT U NIT (test code = 3262) Neg Negative - Negati ve POCT U PROT (test code = 3259) Trace Negative - Negat josé miguel POCT U GLU (test code = 3256) Neg Negative - Negati ve POCT U KETONE (test code = 3258) None Negative - Neg ative POCT U BLD (test code = 3257) Negative - Negati ve [facility] W/O SPECIFIC [id number] 15:19:00* Test Item Value Reference Range Interpretation Comme nts POCT PH U (test code = 3254) 5 mg/dl 5-8 POCT U LEUK EST (test code = 3263) Trace Negative - Negative POCT U NIT (test code = 3262) Neg Negative - Negati ve POCT U PROT (test code = 3259) Trace Negative - Negat josé miguel POCT U GLU (test code = 3256) Neg Negative - Negati ve POCT U KETONE (test code = 3258) None Negative - Neg ative POCT U BLD (test code = 3257) Negative - Negati ve [facility] Notes Date/Time Note Provider Source 2023-12-02 22:11:54 Patient provided with discharge instructions, prescription information, and follow up information. Pt verbalizes understanding and able to teach back instructions. Pt ambulatory out of dept with steady gait. Ted Chaney RN [facility] 2023-12-02 22:02:52 Patient provided with discharge instructions, prescription information, and follow up information. Pt verbalizes understanding and able to teach back instructions. Pt ambulatory out of dept with steady gait. [facility] 2023-12-02 21:06:10 Ev Moyer is a 48 year old female who presents to ER 128 aox4 for cc of bright red rectal bleeding and 10/10 pain to rectum for 2-3 months. 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 Pt denies dark rectal bleeding, abdominal pain, fever. [facility] 2023-12-02 20:42:37 Rectal exam performed by ER MD chaperoned by this RN. Rose Rubio RN [facility] 2023-12-02 20:29:43 Ev Moyer is a 48 year old female arrives to ED ambulatory with steady gait with complaints of bleeding from rectum x 1 month. Patient reports was seen at OSH 1 month ago and told to follow up with GI and awaiting GI appointment. Patient reports bright red blood in toilet after BM and when wiping but yesterday there was bright red blood in toiled even when voiding. Patient is unsure of hemorrhoid hx. Patient is AAOx4, RR E/U, NAD noted. Florinda Zamarripa RN [facility] 2023-01-31 10:21:46 Formatting of this n ote is different from the original. Chief Complaint Patient presents with Follow-up Follow up on blood pressure, anxiety/depression and weight management Dorcas Rothman MA II [place] 2023-01-03 11:02:32 Formatting of this n ote might be different from the original. Patient is here for physical, BP 144/88, states she has not been seen by provider in a long time so she hasn't had her medications. History reviewed. T Estefany Santos [facility]
[2024-01-23] MEDS ORDERED: KETOROLAC 30 MG/ML INJ ONE (22:16)
[2024-01-23] MEDS ORDERED: NA CHLORIDE 0.9% 1,000 ML ONE (22:16)
[2024-01-23] MEDS ORDERED: ONDANSETRON 4 MG/2 ML VIAL ONE (22:16)
[2024-01-23] MEDS ORDERED: MORPHINE 4 MG/ML SYR ONE (22:16)
[2024-01-23 22:55] LABS: Absolute Eosinophils 0.4 K/uL (0-0.5); Absolute Lymphocytes (CBC) 2.9 K/uL (0.7-4.9); Absolute Monocytes 0.8 K/uL (0.1-1.3); Absolute Neutrophil 6.1 K/uL (1.8-8.0); Basophils % 0.3 % (0-1.3); Eosinophils % 3.5 % (0-4.4); Hematocrit 31.3 % (36.0-45.0); Hemoglobin 10.3 g/dL (12.0-15.0); MCH 30.8 pg (27.0-35.0); MCHC 32.8 g/dL (32.0-36.0); MCV 94.1 fL (80-100); Monocytes % 8.2 % (3.3-12.3); Platelets 297 thou/uL (152-406); RBC Red Blood Cell Count 3.33 M/uL (3.86-4.86); Red Cell Distribution Width 13.2 % (12.1-15.2)
[2024-01-23 22:57] LABS: Albumin 3.4 g/dL (3.4-5.0); Albumin/Globulin Ratio 0.9 (1.1-1.8); Anion Gap 11.4 mEq/L (5.0-15.0); Bilirubin Total 0.2 mg/dL (0.2-1.0); Potassium 3.4 mEq/L (3.5-5.1); Protein, Total 7.4 g/dL (6.4-8.2)
--- NOTE | 2024-01-24 01:32 | ER ---
Nurse's Notes [facility] Name: Loyda Moyer Age: 48 yrs Sex: Female : 1975 Arrival Date: 01/23/2024 Time: 21:35 Bed 8 Private MD: Tino Desir Diagnosis: Acute Rectal Bleeding, Rectal Cystic Mass Presentation: 01/22 21:50 Chief complaint: Patient states: Diagnosed with internal and external hemorrhoids 3 cm10 months ago. Pt states that she has had bleeding for the last 3 months that got worse today. Pt reports having increased pain as well.. Coronavirus screen: Client denies travel out of the [place] in the last 14 days. Ebola Screen: Patient denies travel to an Ebola-affected area in the 21 days before illness onset. No symptoms or risks identified at this time. Initial Sepsis Screen: Does the patient meet any 2 criteria? No. Patient's initial sepsis screen is negative. Does the patient have a suspected source of infection? No. Patient's initial sepsis screen is negative. Risk Assessment: Do you want to hurt yourself or someone else? Patient reports no desire to harm self or others. Onset of symptoms was January 23, 2024. 21:50 Method Of Arrival: Ambulatory cm10 21:50 Acuity: JOCELYN 3 cm10 Triage Assessment: 21:53 General: Appears in no apparent distress. comfortable, Behavior is calm, cooperative. cm10 Neuro: No deficits noted. Level of Consciousness is awake, alert, obeys commands, Oriented to person, place, time, situation, Appropriate for age. Respiratory: No deficits noted. Airway is patent Respiratory effort is even, unlabored, Respiratory pattern is regular, symmetrical. 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 - Infectious Disease History:: Denies. - Social history:: Smoking status: Patient denies any tobacco usage or history of. - Family history:: not pertinent. Screenin:27 [facility] ED Fall Risk Assessment (Adult) History of falling in the last 3 months, bm8 including since admission No falls in past 3 months (0 pts) Confusion or Disorientation No (0 pts) Intoxicated or Sedated No (0 pts) Impaired Gait No (0 pts) Mobility Assist Device Used No (0 pt) Altered Elimination No (0 pt) Score/Fall Risk Level 0 - 2 = Low Risk Oriented to surroundings, Maintained a safe environment, Educated pt \\T\\ family on fall prevention, incl call for assistance when getting out of bed, Assessed \\T\\ reinforced patient's understanding of fall precautions, Hourly rounding (assess needs \\T\\ fall precautionary measures) done, Used ambulatory aids as needed (educated on \\T\\ assisted with), Used gait belt as appropriate. Abuse screen: Denies threats or abuse. Nutritional screening: No deficits noted. Tuberculosis screening: No symptoms or risk factors identified. Assessment: 22:27 General: Appears in no apparent distress. uncomfortable, Behavior is calm, cooperative, bm8 appropriate for age. Pain: Complains of pain in rectum Pain does not radiate. Pain currently is 10 out of 10 on a pain scale. Neuro: No deficits noted. Level of Consciousness is awake, alert, obeys commands, Oriented to person, place, time, situation, Appropriate for age. Cardiovascular: Denies chest pain, Capillary refill < 3 seconds Patient's skin is warm and dry. Respiratory: Airway is patent Trachea midline Respiratory effort is even, unlabored, Respiratory pattern is regular, symmetrical. GI: pt reports pain in rectum from external hemorrhoid and "excessive bleeding for months". : No signs and/or symptoms were reported regarding the genitourinary system. EENT: No signs and/or symptoms were reported regarding the EENT system. Derm: No signs and/or symptoms reported regarding the dermatologic system. Musculoskeletal: No signs and/or symptoms reported regarding the musculoskeletal system. 01/23 00:37 Reassessment: Patient appears in no apparent distress at this time. Patient and/or hb family updated on plan of care and expected duration. Pain level reassessed. Patient is alert, oriented x 3, equal unlabored respirations, skin warm/dry/pink. 01:59 Reassessment: Patient and/or family updated on plan of care and expected duration. Pain bm8 level reassessed. Patient is alert, oriented x 3, equal unlabored respirations, skin warm/dry/pink. pt informed by provider of need for transfer. pt has agreed. pt up to restroom. Patient denies pain at this time. 02:12 Reassessment: report to felicity odell at [facility]. bm8 Vital Signs: 01/22 21:50 BP 145 / 83; Pulse 80; Resp 16; Temp 97.5; Pulse Ox 97% on R/A; Weight 83.01 kg; Height cm10 5 ft. 1 in. ; Pain 10/; 22:27 BP 164 / 87; Pulse 85; Resp 17; Temp 97.5; Pulse Ox 100% ; Pain 10/10; bm8 23:05 BP 138 / 72; Pulse 85; Resp 16; Pulse Ox 100% on R/A; hb 01/23 00:37 BP 115 / 66; Pulse 79; Resp 15; Pulse Ox 96% on R/A; hb 01:59 BP 152 / 78; Pulse 82; Resp 18; Temp 97.5; Pulse Ox 100% ; Pain 0/10; bm8 01/22 21:50 Body Mass Index 34.58 (83.01 kg, 154.94 cm) cm10 01/22 21:50 Pain Scale: Adult cm10 22:27 Pain Scale: Adult bm8 01:59 Pain Scale: Adult bm8 Robert Coma Score: 01/22 22:27 Eye Response: spontaneous(4). Motor Response: obeys commands(6). Verbal Response: bm8 oriented(5). Total: 15. 01/23 01:59 Eye Response: spontaneous(4). Motor Response: obeys commands(6). Verbal Response: bm8 oriented(5). Total: 15. 02:05 Eye Response: spontaneous(4). Motor Response: obeys commands(6). Verbal Response: sp4 oriented(5). Total: 15. ED Course: 01/22 21:38 Patient arrived in ED. gm2 21:39 Tino Desir DO is Private Physician. gm2 21:47 Karlos Bazan MD is Attending Physician. sp4 21:52 Triage completed. cm10 21:54 Arm band placed on Patient placed in an exam room, on a stretcher. cm10 22:13 Josr Haider, RN is Primary Nurse. bm8 22:27 Patient has correct armband on for positive identification. Bed in low position. Call bm8 light in reach. Side rails up X 1. Adult w/ patient. Client placed on continuous cardiac and pulse oximetry monitoring. NIBP monitoring applied. Pulse ox on. NIBP on. Door closed. Noise minimized. Visitors limited. Warm blanket given. Pillow given. Verbal reassurance given. 22:27 No provider procedures requiring assistance completed. Initial lab(s) drawn, by , coreen sent to lab. Inserted saline lock: 20 gauge in right antecubital area, using aseptic technique. Blood collected. Flushed with 10 mL NS. Patient maintains SpO2 saturation greater than 95% on room air. 23:28 CT Abd/Pelvis - IV Contrast Only: Rectal mass In Process Unspecified. EDMS 01/23 01:25 initiated transfer with Cassi Salas\\ [facility]. kmf 01:40 doc to doc. kmf 02:05 pt was accepted to [facility] room [address] [place] [address] Tushar Schofield accepted \\T\\ 0143. Admin [facility] approval given by Cassi Cheng \\T\\ 0150. Number for nurse to nurse report [phone]. [facility] to transfer pt. 02:31 Patient transferred, IV remains in place. bm8 02:32 Provided Education on: need for transfer. bm8 Administered Medications: 01/22 22:26 Drug: Ketorolac IVP 30 mg IVP once Route: IVP; Site: right antecubital; bm8 23:26 Follow up: Response: No adverse reaction bm8 22:26 Drug: morphine IVP or IV 4 mg IVP once over 4 mins Route: IVP; Infused Over: 4 mins; bm8 Site: right antecubital; 23:26 Follow up: Response: No adverse reaction bm8 22:26 Drug: Ondansetron IVP 4 mg IVP once; over 2 minutes Route: IVP; Site: right antecubital;bm8 23:26 Follow up: Response: No adverse reaction bm8 22:26 Drug: NS 0.9% IV 1000 ml IV at 1 bolus Per protocol; 1000 mL bolus Route: IV; Rate: 1 bm8 bolus; Site: right antecubital; 23:26 Follow up: Response: No adverse reaction; IV Status: Completed infusion; IV Intake: bm8 1000ml Medication: 22:27 VIS not applicable for this client. bm8 Intake: 23:26 IV: 1000ml; Total: 1000ml. bm8 Outcome: 01/23 01:31 ER care complete, transfer ordered by sp4 02:30 Transferred by ground EMS to [facility], Transfer form bm8 completed. X-rays sent w/ patient. 02:30 Condition: stable 02:30 Instructed on the need for transfer, Demonstrated understanding of instructions, follow-up care, 02:32 Patient left the ED. bm8 Signatures: Dispatcher [employer] EDMS Perri Patel RN RN Karlos Rodriguez MD MD sp4 Becca Delcid RN RN cm10 Laila Whyte 2 Carmen Beckett [facility] Josr Haider RN RN bm8 Corrections: (The following items were deleted from the chart) 00:40 00:37 BP 136 / 76; Pulse 79bpm; Resp 15bpm; Pulse Ox 95% RA; hb hb
--- NOTE | 2024-01-24 01:32 | EDPHYS ---
Physician Documentation [facility] Name: Loyda Moyer Age: 48 yrs Sex: Female : 1975 Arrival Date: 01/23/2024 Time: 21:35 Bed 8 Private MD: Tino Desir ED Physician Karlos Bazan HPI: 01/22 21:47 This 48 yrs old Female presents to ER via Unassigned with complaints of Rectal sp4 Bleeding. 01/23 02:03 48-year-old female presents with persistent rectal bleeding and rectal pain worsening sp4 in the past several days. Patient states she was diagnosed with rectal mass in August also diagnosed with external and internal hemorrhoid. Pain has intensified and bleeding has worsened in the last 2 days. 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 - Infectious Disease History:: Denies. - Social history:: Smoking status: Patient denies any tobacco usage or history of. - Family history:: not pertinent. ROS: 01/23 02:05 Constitutional: Negative for fever, chills, and weight loss, positive for rectal pain, sp4 positive rectal bleeding All other systems are negative, Exam: 02:05 Constitutional: This is a well developed, well nourished patient who is awake, alert, sp4 and in no acute distress. Head/Face: Normocephalic, atraumatic. Eyes: Pupils equal round and reactive to light, extra-ocular motions intact. Lids and lashes normal. Conjunctiva and sclera are not injected. Cornea within normal limits. Periorbital areas with no swelling, redness, or edema. ENT: Nares patent. No nasal discharge, no septal abnormalities noted. Tympanic membranes are normal and external auditory canals are clear. Oropharynx with no redness, swelling, or masses, exudates, or evidence of obstruction, uvula midline. Mucous membranes moist. Neck: Trachea midline, no thyromegaly or masses palpated, and no cervical lymphadenopathy. Supple, full range of motion without nuchal rigidity, or vertebral point tenderness. Chest/axilla: Normal chest wall appearance and motion. Nontender with no deformity. No lesions are appreciated. Cardiovascular: Regular rate and rhythm with a normal S1 and S2. No gallops, murmurs, or rubs. Normal PMI, no JVD. No pulse deficits. Respiratory: Lungs have equal breath sounds bilaterally, clear to auscultation and percussion. No rales, rhonchi or wheezes noted. No increased work of breathing, no retractions or nasal flaring. Abdomen/GI: Soft, with normal bowel sounds. No distension or tympany. No guarding or rebound. No evidence of tenderness throughout. Back: No spinal tenderness. No costovertebral tenderness. Skin: Warm, dry with normal turgor. Normal color with no rashes, no lesions, and no evidence of cellulitis. MS/ Extremity: Pulses equal, no cyanosis. Neurovascular intact. Full, normal range of motion. Neuro: Awake and alert, GCS 15, oriented to person, place, time, and situation. Cranial nerves II-XII grossly intact. Motor strength 5/5 in all extremities. Sensory grossly intact. Psych: Awake, alert, with orientation to person, place and time. Behavior, mood, and affect are within normal limits 02:05 Abdomen/GI: Rectal exam reveals dark red blood per rectum, there is also large sized external hemorrhoid with recent appearing incision on it. No sign of actively bleeding hemorrhoid. Blood seems to come from up in the rectum. There is associated moderate rectal tenderness precluding further rectal exam., Vital Signs: 01/22 21:50 BP 145 / 83; Pulse 80; Resp 16; Temp 97.5; Pulse Ox 97% on R/A; Weight 83.01 kg; Height cm10 5 ft. 1 in. ; Pain 02/21; 22:27 BP 164 / 87; Pulse 85; Resp 17; Temp 97.5; Pulse Ox 100% ; Pain 10/; bm8 23:05 BP 138 / 72; Pulse 85; Resp 16; Pulse Ox 100% on R/A; hb 01/23 00:37 BP 115 / 66; Pulse 79; Resp 15; Pulse Ox 96% on R/A; hb 01:59 BP 152 / 78; Pulse 82; Resp 18; Temp 97.5; Pulse Ox 100% ; Pain 0/10; bm8 01/22 21:50 Body Mass Index 34.58 (83.01 kg, 154.94 cm) cm10 01/22 21:50 Pain Scale: Adult cm10 22:27 Pain Scale: Adult bm8 01:59 Pain Scale: Adult bm8 Robert Coma Score: 01/22 22:27 Eye Response: spontaneous(4). Motor Response: obeys commands(6). Verbal Response: bm8 oriented(5). Total: 15. 01/23 01:59 Eye Response: spontaneous(4). Motor Response: obeys commands(6). Verbal Response: bm8 oriented(5). Total: 15. 02:05 Eye Response: spontaneous(4). Motor Response: obeys commands(6). Verbal Response: sp4 oriented(5). Total: 15. MDM: 01/22 21:49 Patient medically screened. sp4 01/23 01:01 ED course: These critical findings were discussed with Dr. Karlos Bazan on sp4 01/24/2024 at 12:45 AM central time. It was also learned that the patient has a large external hemorrhoid which may account for soft tissue fullness in the perianal region. Electronically signed by: Dorcas Mcfadden DO 01/24/2024 12:55 AM CDT RP End of Addendum EXAM: CT abdomen and pelvis with IV contrast CLINICAL DATA: 48 years Female rectal bleeding TECHNICAL DATA: Axial CT imaging of the abdomen and pelvis was performed following the administration of intravenous contrast.. Oral contrast was not administered. Sagittal and coronal reconstructed images were then performed. The CT study is performed according to ALARA (as low as reasonably achievable) or ALARA/IMAGE GENTLY, with automatic adjustment of mA and/or kV according to patient size. Performed on: 01/23/2024 at 11:34 PM. Comparison: CT abdomen and pelvis report from 09/05/2023. The images were not available for review. FINDINGS: Lung bases: The lung bases are clear. There is minimal bibasilar atelectasis and/or fibrosis. The heart is normal in size. There are partially imaged bilateral breast implants. Liver:The liver is normal in size and configuration. No focal hepatic abnormalities are identified. There is decreased attenuation of the liver which is nonspecific but can be seen with hepatic steatosis. The hepatic and portal veins are patent. Spleen:The spleen is normal in size, configuration and attenuation. Gallbladder and bile duct: The gallbladder is surgically absent. There is no biliary ductal dilatation. Pancreas: The pancreas is grossly normal in size and configuration. Adrenal Glands:The adrenal glands are normal in size and configuration. Kidneys:The kidneys are normal in size and configuration. There is no evidence of hydronephrosis. There is no evidence of nephrolithiasis. There is a 1.6 x 1.4 cm benign-appearing exophytic cyst arising from the upper pole of the right kidney. No follow-up imaging is recommended. Stomach:The stomach is grossly normal. There is no definite hiatal hernia. Bowel:The bowel gas pattern is non specific and non obstructive. Appendix: The appendix is not clearly identified. There is no CT evidence to suggest acute appendicitis. Free air:There is no evidence of free air. Free fluid: There is no evidence of free fluid. Vasculature: The aorta is normal in caliber and contour. The inferior vena cava is grossly unremarkable. Lymphadenopathy: There is left external iliac chain lymphadenopathy measuring approximately 3.1 x 1.7 cm in cross-sectional diameter by approximately 3.7 cm in craniocaudal dimension. There is also an approximately 2.1 x 1.3 cm left inguinal lymph node. Bladder: The bladder is well distended. Reproductive: The uterus is grossly within normal limits. There is a probable small fundal uterine fibroid measuring approximately 2 cm in diameter. There is a small 2.8 x 2.5 x 1.9 cm left ovarian cyst. Additionally, there is a large cystic mass between the rectum and vagina measuring approximately 5.5 x 4.6 x 4.9 cm displacing the vagina anteriorly and the rectum posteriorly. This has increased in size when compared to the prior study at which time it measured 2.5 cm. Bones: No acute osseous abnormalities are identified. Soft tissues: No acute soft tissue abnormalities are identified. IMPRESSION: 1. There is a large cystic mass between the rectum and vagina measuring approximately 5.5 x 4.6 x 4.9 cm displacing the vagina anteriorly and the rectum posteriorly. This has increased in size when compared to the prior study at which time it measured 2.5 cm. A cystic neoplasm is not excluded. 2. Left external iliac chain lymphadenopathy measuring approximately 3.1 x 1.7 x 3.7 cm. There is also an approximately 2.1 x 1.3 cm left inguinal lymph node. 3. Suspect small fundal uterine fibroid measuring approximately 2 cm in diameter. 4. Small 2.8 cm left ovarian cyst. No follow-up imaging recommended. 5. Decreased attenuation of the liver which is nonspecific but can be seen with hepatic steatosis. 6. Remote cholecystectomy. Electronically signed by: Dorcas Mcfadden DO 01/24/2024 12:32 AM FlypaperT RP . 02:05 Differential diagnosis: hemorrhoids, fissure, abscess, pilonidal cyst, condyloma. Data sp4 reviewed: vital signs, nurses notes, old medical records, lab test result(s), radiologic studies, CT scan. Consideration of Admission/Observation Escalation of care including admission/observation considered. ED course: Patient's CAT scan has revealed a large cystic mass 5 x 5 x 5 cm situated between the rectum and vagina and associated left external iliac lymphadenopathy. Patient has increased in the size of the mass from CAT scan in August 2023. Also by exam it appears to be actively bleeding cystic mass concerning for cystic neoplasm. This may be rectal or vaginal neoplasm however, there is no available colorectal surgeon here and patient was requested for transfer to [facility]. . 01/22 21:48 Order name: CBC with Diff; Complete Time: 00:43 sp4 01/22 21:48 Order name: CMP; Complete Time: 00:43 sp4 01/22 22:10 Order name: Test, Serum; Complete Time: 00:43 sp4 01/22 22:10 Order name: CT Abd/Pelvis - IV Contrast Only: Rectal mass sp4 01/22 21:48 Order name: IV Saline Lock; Complete Time: 22:26 sp4 01/22 21:48 Order name: Labs collected and sent; Complete Time: 22:26 sp4 Administered Medications: 01/22 22:26 Drug: Ketorolac IVP 30 mg IVP once Route: IVP; Site: right antecubital; bm8 23:26 Follow up: Response: No adverse reaction bm8 22:26 Drug: morphine IVP or IV 4 mg IVP once over 4 mins Route: IVP; Infused Over: 4 mins; bm8 Site: right antecubital; 23:26 Follow up: Response: No adverse reaction bm8 22:26 Drug: Ondansetron IVP 4 mg IVP once; over 2 minutes Route: IVP; Site: right antecubital;bm8 23:26 Follow up: Response: No adverse reaction bm8 22:26 Drug: NS 0.9% IV 1000 ml IV at 1 bolus Per protocol; 1000 mL bolus Route: IV; Rate: 1 bm8 bolus; Site: right antecubital; 23:26 Follow up: Response: No adverse reaction; IV Status: Completed infusion; IV Intake: bm8 1000ml Disposition Summary: 01/24/24 01:31 Transfer Ordered Notes: Transfer Location: [facility]-System sp4 Reason: Higher level of care sp4 Condition: Stable sp4 Problem: new sp4 Symptoms: have improved sp4 Accepting Physician: [place] [facility] (01/24/24 02:32) bm8 Diagnosis - Acute Rectal Bleeding, Rectal Cystic Mass sp4 Forms: - Medication Reconciliation Form sp4 - SBAR form sp4 Signatures: Dispatcher [employer] EDKarlos Witt MD MD sp4 Becca Delcid, RN RN cm10 Josr Haider RN RN bm8 Corrections: (The following items were deleted from the chart) 21:49 21:49 CBC+H.LAB.BRZ ordered. EDMS EDMS 21:49 21:49 COMPREHENSIVE METABOLIC PANEL+C.LAB.BRZ ordered. EDMS EDMS 01/23 02:32 01:31 [facility] sp4 bm8
[2024-01-24 02:41] VITALS: TEMP 97.5
[2024-01-24 02:55] VITALS: BP 152/78; O2SAT 100
--- NOTE | 2024-01-24 11:30 | RAD REPORT ---
EXAM DESCRIPTION: ADDENDUM #1 These critical findings were discussed with Dr. Karlos Bazan on 01/24/2024 at 12:45 AM [facility]. It was also learned that the patient has a large external hemorrhoid which may account for soft ti ssue fullness in the perianal region. Electronically signed by: Dorcas Mcfadden DO 01/24/2024 12:55 AM CDT RP End of Addendum EXAM: CT abdomen and pelvis with IV contrast CLINICAL HISTORY: 48 years Female rectal bleeding TECHNIQUE: Axial CT imaging of the abdomen and pelvis was performed following the administration of intravenous contrast.. Oral contrast was not administered. Sagittal and coronal reconstructed image s were then performed. The CT study is performed according to ALARA (as low as reasonably achievabl e) or ALARA/IMAGE GENTLY, with automatic adjustment of mA and/or kV according to patient size. Performed on: 01/23/2024 at 11:34 PM. COMPARISON: CT abdomen and pelvis report from 09/05/2023. The images were not available for review. FINDINGS: Lung bases: The lung bases are clear. There is minimal bibasilar atelectasis and/or fibros is. The heart is normal in size. There are partially imaged bilateral breast implants. Liver: The liver is normal in size and configuration. No focal hepatic abnormalities are identified. There is decreased attenuation of the liver which is nonspecific but can be seen with hepatic steatos is. The hepatic and portal veins are patent. Spleen: The spleen is normal in size, configuration and attenuation. Gallbladder and bile duct: The gallbladder is surgically absent. There is no biliary ductal dilatat ion. Pancreas: The pancreas is grossly normal in size and configuration. Adrenal Glands: The adrenal glands are normal in size and configuration. Kidneys: The kidneys are normal in size and configuration. There is no evidence of hydronephrosis. Th ere is no evidence of nephrolithiasis. There is a 1.6 x 1.4 cm benign-appearing exophytic cyst arisin g from the upper pole of the right kidney. No follow-up imaging is recommended. Stomach: The stomach is grossly normal. There is no definite hiatal hernia. Bowel: The bowel gas pattern is non specific and non obstructive. Appendix: The appendix is not clearly identified. There is no CT evidence to suggest acute appendicit is. Free air: There is no evidence of free air. Free fluid: There is no evidence of free fluid. Vasculature: The aorta is normal in caliber and contour. The inferior vena cava is grossly unremarkab le. Lymphadenopathy: There is left external iliac chain lymphadenopathy measuring approximately 3.1 x 1.7 cm in cross-sectional diameter by approximately 3.7 cm in craniocaudal dimension. There is also an a pproximately 2.1 x 1.3 cm left inguinal lymph node. Bladder: The bladder is well distended. Reproductive: The uterus is grossly within normal limits. There is a probable small fundal uterine fi broid measuring approximately 2 cm in diameter. There is a small 2.8 x 2.5 x 1.9 cm left ovarian cyst . Additionally, there is a large cystic mass between the rectum and vagina measuring approximately 5. 5 x 4.6 x 4.9 cm displacing the vagina anteriorly and the rectum posteriorly. This has increased in s ize when compared to the prior study at which time it measured 2.5 cm. Bones: No acute osseous abnormalities are identified. Soft tissues: No acute soft tissue abnormalities are identified. IMPRESSION: 1. There is a large cystic mass between the rectum and vagina measuring approximately 5.5 x 4.6 x 4.9 cm displacing the vagina anteriorly and the rectum posteriorly. This has increased in size when compared to the prior study at which time it measured 2.5 cm. A cystic neoplasm is not exc luded. 2. Left external iliac chain lymphadenopathy measuring approximately 3.1 x 1.7 x 3.7 cm. There is a lso an approximately 2.1 x 1.3 cm left inguinal lymph node. 3. Suspect small fundal uterine fibroid measuring approximately 2 cm in diameter. 4. Small 2.8 cm left ovarian cyst. No follow-up imaging recommended. 5. Decreased attenuation of the liver which is nonspecific but can be seen with hepatic steatosis. 6. Remote cholecystectomy. Electronically signed by: Dorcas Mcfadden DO 01/24/2024 12:32 AM CDT RP Due to temporary technical issues with the PACS/Fluency reporting system, reports are being signed by the in house radiologist without review as a courtesy to ensure prompt reporting. The interpreting r adiologist is fully responsible for the content of the report.
== END 2024-01-24 02:32 | disposition short-term general hospital (02) ==
LOC: ER 21:35
DX: K62.5 Hemorrhage of anus and rectum (principal); K62.89 Other specified diseases of anus and rectum
CPT/HCPCS: 96361; 85025; 36415; 84703; 80053; 74177; 96375; 96374; 99285; Q9967; J2405; J7030

== ENCOUNTER 2024-04-09 23:24 | Emergency (ER) | payer OTHER ==
[2024-04-10] MEDS ORDERED: HYDROCODONE/APAP 10/325 TAB ONE (01:03)
[2024-04-10 01:16] LABS: Specific Gravity 1.023 (1.005-1.030); Sqamous Epithelial <5 /HPF (None Seen); Urine Bacteria 20-50 /HPF (<20); Urine Bilirubin NEGATIVE (Negative); Urine Blood 2+ (Negative); Urine Clarity Extremely Turbid (Clear); Urine Color Yellow (Yellow); Urine Culture Reflex Order REFLEXED; Urine Glucose NEGATIVE (Negative); Urine Ketones NEGATIVE (Negative); Urine Microscopic Reflex YN ORDER UMIC; Urine Mucus 1+ /HPF (None Seen); Urine Nitrite NEGATIVE (Negative); Urine Protein 1+ (Negative); Urine RBC >50 /HPF (None Seen); Urine Urobilinogen Normal (Normal); Urine WBC >50 /HPF (<5); Urine WBC Clump Rare /HPF (None Seen); Urine pH 5.5 (5.0-7.0)
[2024-04-10] MEDS ORDERED: CIPROFLOXACIN HCL 500 MG TAB ONE (01:34)
[2024-04-10] MEDS ORDERED: PHENAZOPYRIDINE 100MG TAB PO ONE (01:34)
--- NOTE | 2024-04-10 01:42 | ER ---
Nurse's Notes [facility] Name: Loyda Moyer Age: 48 yrs Sex: Female : 1975 Arrival Date: 04/09/2024 Time: 23:24 Bed 20 Private MD: Diagnosis: UTI/ Urinary tract infection, site not specified Presentation: 04/09 23:36 Chief complaint: Patient states: I AM CURRENTLY ON CHEMOTHERAPY AND RADIATION FOR ANO ha1 CANCER AND IT IS CAUSING BLISTERS AND REDNESS IN MY VAGINAL ARE. BURNING WITH URINATION. 23:36 Coronavirus screen: At this time, the client does not indicate any symptoms associated ha1 with coronavirus-19. Ebola Screen: No symptoms or risks identified at this time. Initial Sepsis Screen: Does the patient meet any 2 criteria? No. Patient's initial sepsis screen is negative. Does the patient have a suspected source of infection? No. Patient's initial sepsis screen is negative. Risk Assessment: Do you want to hurt yourself or someone else? Patient reports no desire to harm self or others. Onset of symptoms was April 10, 2024. 23:36 Method Of Arrival: Ambulatory 1 23:36 Acuity: JOCELYN 4 ha1 Triage Assessment: 23:36 General: Appears uncomfortable, Behavior is cooperative. Pain: Complains of pain in ha1 VAGINAL BURNING Pain currently is 10 out of 10 on a pain scale. Quality of pain is described as burning. Neuro: Level of Consciousness is awake, alert, obeys commands, Oriented to person, place, time, situation. Cardiovascular: Capillary refill < 3 seconds Patient's skin is warm and dry. Respiratory: Airway is patent Respiratory effort is even, unlabored, Respiratory pattern is regular, symmetrical. GI: Abdomen is round non-distended. : Reports VAGINAL BLISTERS, REDNESS. Historical: - Allergies: 23:36 No Known Allergies; ha1 - Home Meds: 23:36 hydrochlorothiazide 25 mg Oral tablet [Active]; lisinopril Oral [Active]; losartan 100 ha1 mg Oral tablet [Active]; - PMHx: 23:36 anal cancer (2023); hemorrhoids; Hypertension; ha1 - PSHx: 23:36 Appendectomy; Cholecystectomy; ha1 - Immunization history:: Adult Immunizations up to date. - Infectious Disease History:: Denies. - Social history:: Smoking status: Patient denies any tobacco usage or history of. Screenin/27 00:27 [facility] ED Fall Risk Assessment (Adult) History of falling in the last 3 months, ha1 including since admission No falls in past 3 months (0 pts) Confusion or Disorientation No (0 pts) Intoxicated or Sedated No (0 pts) Impaired Gait No (0 pts) Mobility Assist Device Used No (0 pt) Altered Elimination No (0 pt) Score/Fall Risk Level 0 - 2 = Low Risk Oriented to surroundings, Maintained a safe environment, Educated pt \T\ family on fall prevention, incl call for assistance when getting out of bed, Hourly rounding (assess needs \T\ fall precautionary measures) done. Abuse screen: Denies threats or abuse. Denies injuries from another. Nutritional screening: No deficits noted. Tuberculosis screening: No symptoms or risk factors identified. Assessment: 01:36 Reassessment: Patient appears in no apparent distress at this time. Patient and/or jb4 family updated on plan of care and expected duration. Pain level reassessed. Patient is alert, oriented x 3, equal unlabored respirations, skin warm/dry/pink. Vital Signs: 04/09 23:36 BP 152 / 78; Pulse 85; Resp 17 S; Temp 97.8(O); Pulse Ox 100% on R/A; Weight 77.11 kg; ha1 Height 5 ft. 1 in. ; 04/10 01:36 BP 111 / 69; Pulse 92; Resp 16; Pulse Ox 100% on R/A; jb4 04/09 23:36 Body Mass Index 32.12 (77.11 kg, 154.94 cm) [facility] ED Course: 04/09 23:28 Patient arrived in ED. ra3 04/10 00:11 Orlando Walton MD is Attending Physician. bo1 00:22 Triage completed. ha1 01:36 Patient has correct armband on for positive identification. Placed in gown. Bed in low jb4 position. Call light in reach. Side rails up X 1. Provided Education on: plan of care. 01:36 No provider procedures requiring assistance completed. Patient did not have IV access jb4 during this emergency room visit. Administered Medications: 01:05 Drug: HYDROcodone-acetaminophen PO 10 mg-325 mg 1 tabs PO once Route: PO; jb4 01:29 Follow up: Response: No adverse reaction jb4 01:36 Drug: Ciprofloxacin PO 500 mg PO once Route: PO; jb4 01:58 Follow up: Response: No adverse reaction jb4 01:36 Drug: Phenazopyridine PO 200 mg PO once Route: PO; jb4 01:58 Follow up: Response: No adverse reaction; Marked relief of symptoms; Pain is decreased jb4 Medication: 01:36 VIS not applicable for this client. jb4 Outcome: 01:41 Discharge ordered by . bo1 :58 Discharged to home ambulatory, with family, jb4 :58 Condition: stable 01:58 Discharge instructions given to patient, Instructed on discharge instructions, follow up and referral plans. medication usage, Demonstrated understanding of instructions, follow-up care, medications, Prescriptions given X 2, :58 Patient left the ED. jb4 Signatures: Chandu Muller RN RN jb4 Nancy Walden RN RN ha1 Saida Harvey 3 Oralndo Walton MD MD bo1
--- NOTE | 2024-04-10 01:42 | EDPHYS ---
Physician Documentation [facility] Name: Loyda Moyer Age: 48 yrs Sex: Female : 1975 Arrival Date: 04/09/2024 Time: 23:24 Bed 20 Private MD: ED Physician Orlando Walton HPI: 04/10 01:31 This 48 yrs old Female presents to ER via Ambulatory with complaints of blood bo1 in urine burning sensation. 01:31 Hx of blood in the urine x 3 days with worsening dysuria. . Onset: The symptoms/episode bo1 began/occurred gradually. Severity of symptoms: At their worst the symptoms were moderate in the emergency department the symptoms are unchanged. Pt has be treated with MacroBID but not better. Pt has been told the sxs due to the radiation being given for anal CA. Oncology has Rx'ed hydrocodone. Historical: - Allergies: 04/09 23:36 No Known Allergies; ha1 - Home Meds: 23:36 hydrochlorothiazide 25 mg Oral tablet [Active]; lisinopril Oral [Active]; losartan 100 ha1 mg Oral tablet [Active]; - PMHx: 23:36 anal cancer (2023); hemorrhoids; Hypertension; ha1 - PSHx: 23:36 Appendectomy; Cholecystectomy; ha1 - Immunization history:: Adult Immunizations up to date. - Infectious Disease History:: Denies. - Social history:: Smoking status: Patient denies any tobacco usage or history of. ROS: 04/10 01:33 Constitutional: Negative for fever, chills, and weight loss bo1 Cardiovascular: Negative for chest pain, Respiratory: Negative for cough, shortness of breath, Abdomen/GI: Negative for abdominal pain, nausea and vomiting, : Positive for urinary symptoms, hematuria, burning with urination, : Positive for "blisters" in the private area, Skin: Negative for rash, All other systems are negative, Exam: 01:34 Constitutional: This is a well developed, well nourished patient who is awake, alert, bo1 and in no acute distress. 01:34 Constitutional: The patient appears alert, awake, comfortable, 01:34 Abdomen/GI: Exam negative for acute changes, distension, guarding, rebound tenderness, :34 : Deferred, 01:34 Skin: Exam negative for area deferred, Vital Signs: 04/09 23:36 BP 152 / 78; Pulse 85; Resp 17 S; Temp 97.8(O); Pulse Ox 100% on R/A; Weight 77.11 kg; ha1 Height 5 ft. 1 in. ; 04/10 01:36 BP 111 / 69; Pulse 92; Resp 16; Pulse Ox 100% on R/A; jb4 04/09 23:36 Body Mass Index 32.12 (77.11 kg, 154.94 cm) [facility] MDM: 00:11 Medical Screening Exam initiated bo1 01:35 Differential Diagnosis UTI vs radiation cystitis urethritis. Data reviewed: vital bo1 signs, lab test result(s), urinalysis, Markers are positive suggesting a bacterial cause. ED course: Discussed with pt and sig other present the rationale of empiric treatment and close F/U in regards to the urine culture results. 04/10 00:15 Order name: Urinalysis w/ reflexes; Complete Time: 01:21 bo1 04/10 01:20 Order name: Urine Culture EDMS Administered Medications: 01:05 Drug: HYDROcodone-acetaminophen PO 10 mg-325 mg 1 tabs PO once Route: PO; jb4 01:29 Follow up: Response: No adverse reaction jb4 01:36 Drug: Ciprofloxacin PO 500 mg PO once Route: PO; jb4 01:58 Follow up: Response: No adverse reaction jb4 01:36 Drug: Phenazopyridine PO 200 mg PO once Route: PO; jb4 01:58 Follow up: Response: No adverse reaction; Marked relief of symptoms; Pain is decreased jb4 Disposition Summary: 04/10/24 01:41 Discharge Ordered Notes: Location: Home bo1 Problem: new bo1 Symptoms: are unchanged bo1 Condition: Stable bo1 Diagnosis - UTI/ Urinary tract infection, site not specified bo1 Followup: bo1 - With: Private Physician - When: Upon discharge from the Emergency Department - Reason: Recheck today's complaints, Continuance of care Discharge Instructions: - Discharge Summary Sheet bo1 - Urinary Tract Infection, Adult, [id number] bo1 Forms: - Medication Reconciliation Form bo1 - Antibiotic Education bo1 - Prescription Opioid Use bo1 - Patient Portal Instructions bo1 - Leadership Thank You Letter bo1 Prescriptions: - Cipro 500 mg Oral Tablet - take 1 tablet ORAL route every 12 hours for 10 days; 20 tablet; Refills: 0, bo1 Product Selection Permitted - Pyridium 200 mg Oral Tablet - take 1 tablet ORAL route every 8 hours for 3 days; 9 tablet; Refills: 0, bo1 Product Selection Permitted Signatures: Dispatcher [employer] Chandu Staton RN RN jb4 Nancy Walden RN RN ha1 Orlando Walton MD MD bo1
[2024-04-10 09:18] VITALS: TEMP 97.8; O2SAT 100
[2024-04-10 09:19] VITALS: BP 111/69
== END 2024-04-10 01:58 | disposition home or self-care (01) ==
LOC: ER 23:24
DX: N39.0 Urinary tract infection, site not specified (principal)
CPT/HCPCS: 81001; 87086; 87088; 99283